=== PATIENT | female | born 1985 | race American Indian/Alaskan Native ===

== ENCOUNTER 2016-12-05 08:00 | Emergency (ER) | payer MEDICAID ==
[2016-12-05 09:48] LABS: Bacteria,Urine 1+ /HPF (Negative); Bilirubin,Urine NEG (Negative); Blood,Urine NEG (Negative); Ketones,Urine NEG (Negative); Leukocyte Esterase,Urine TR (Negative); Mucus,Urine FEW /HPF; Nitrite,Urine NEG (Negative)
[2016-12-05 10:02] LABS: Basophils % (Auto) 0.4 % (0.0-1.8); Eosinophils % (Auto) 0.1 % (0.0-4.3); Hematocrit 39.8 % (30.3-42.9); Hemoglobin 13.4 gm/dl (10.1-14.3); Mean Corpuscular HGB Conc 34 % (30-34); Mean Corpuscular Hemoglobin 31 pg (28-32); Mean Corpuscular Volume 93 fl (79-97); Platelet Count 308 K/mm3 (140-440); Red Cell Distribution Width 12.2 % (13.2-15.2); White Blood Count 6.2 K/mm3 (4.5-11.0)
--- NOTE | 2016-12-05 10:40 | Emergency Department Report ---
ED General Adult HPI - General Chief complaint: Abdominal Pain Stated complaint: HEADACHES/ABD/RT SIDE PAIN Time Seen by Provider: 12/05/16 10:23 Source: patient, RN notes reviewed, old records reviewed Mode of arrival: Ambulatory Limitations: No Limitations - History of Present Illness Initial comments: This is a 31-year-old female, might have evaluated in the past. Her primary care doctor is Dr. Edgar. She has been noted to have elevated blood pressure in the past, but she reports no chronic medical conditions. Reports a surgical history of cholecystectomy. Last menstrual period was "last week." The patient presents to the ER with multiple complaints. First complaint is headache. The headache is left-sided. It is throbbing. It has been present for the past 2 days. It waxes and wanes. It did not reach maximal intensity within an hour. It is not sudden or thunderclap in nature. It has no exacerbating or relieving factors. The headache is worse today. No fever, no neck pain, no neck stiffness. No loss of vision. No extremity weakness. No extremity numbness. The patient's next complaint is breast pain and fullness. The breast pain and fullness is bilateral. It has been present since December 03. Increases with palpation, decreases with rest. There is no trauma. There is no discharge. The patient's third complaint is abdominal pain. Abdominal pains in the bilateral lower quadrants. It is sharp. It increases with palpation, decreases with rest. She denies nausea, vomiting and diarrhea. She denies irritative and obstructive urinary symptoms. She denies vaginal discharge. The patient reports being sexually active with 1 male partner. She denies a history of dyspareunia. -: Gradual, days(s) Location: head, chest ( bilateral breast), abdomen Consistency: intermittent Improves with: rest Worsens with: movement Associated Symptoms: headaches. denies: confusion, chest pain, cough, diaphoresis, fever/chills, malaise, nausea/vomiting, rash, seizure, shortness of breath, syncope, weakness - Related Data Previous Rx's Medication Instructions Recorded Last Taken Type Doxycycline [Vibramycin] 100 mg PO Q12HR #28 capsule 12/05/16 Unknown Rx Ketorolac [Toradol] 10 mg PO Q6H PRN #20 tablet 12/05/16 Unknown Rx Ondansetron [Zofran Odt] 4 mg PO QID PRN #20 tab.rapdis 12/05/16 Unknown Rx Allergies Allergy/AdvReac Type Severity Reaction Status Date / Time No Known Allergies Allergy Verified 12/05/16 08:11 ED Review of Systems ROS: Stated complaint: HEADACHES/ABD/RT SIDE PAIN Other details as noted in HPI Constitutional: denies: fever, malaise Eyes: denies: eye discharge ENT: denies: epistaxis Respiratory: denies: cough, shortness of breath, wheezing Cardiovascular: denies: chest pain, palpitations Gastrointestinal: abdominal pain Genitourinary: denies: urgency, dysuria, discharge Musculoskeletal: denies: back pain, arthralgia Skin: denies: rash, lesions Neurological: headache Psychiatric: denies: anxiety, depression ED Past Medical Hx - Past Medical History Additional medical history: Gestational hypertention - Surgical History Hx Cholecystectomy: Yes - Social History Smoking Status: Never Smoker Substance Use Type: None - Medications Home Medications: Home Medications Medication Instructions Recorded Confirmed Last Taken Type Doxycycline [Vibramycin] 100 mg PO Q12HR #28 capsule 12/05/16 Unknown Rx Ketorolac [Toradol] 10 mg PO Q6H PRN #20 tablet 12/05/16 Unknown Rx Ondansetron [Zofran Odt] 4 mg PO QID PRN #20 tab.rapdis 12/05/16 Unknown Rx ED Physical Exam - General Limitations: No Limitations General appearance: alert, in no apparent distress - Head Head exam: Present: atraumatic, normocephalic - Eye Eye exam: Present: normal appearance, PERRL, EOMI. Absent: nystagmus - ENT ENT exam: Present: normal exam, normal orophraynx, mucous membranes moist, normal external ear exam - Neck Neck exam: Present: normal inspection, full ROM. Absent: tenderness, meningismus - Respiratory Respiratory exam: Present: normal lung sounds bilaterally, chest wall tenderness (therethere is bilateral breast tenderness. There is no redness, pus , streaking, erythema or crepitus.), other (escorted by MICHAEL Vanessa). Absent: respiratory distress, wheezes, rales, rhonchi, stridor - Cardiovascular Cardiovascular Exam: Present: regular rate, normal rhythm, normal heart sounds. Absent: bradycardia, tachycardia, irregular rhythm, systolic murmur, diastolic murmur, rubs, gallop - GI/Abdominal GI/Abdominal exam: Present: soft, tenderness, normal bowel sounds, other ( bilateral lower quadrant tenderness. No rebound, guarding or peritoneal signs.) . Absent: distended, guarding, rebound, rigid, pulsatile mass - External exam: Present: normal external exam Speculum exam: Present: vaginal discharge Bi-manual exam: Present: cervical motion tendernes, adnexal tenderness, uterine tenderness, other (escorted by RN Clint vanessa) - Extremities Exam Extremities exam: Present: normal inspection, full ROM, normal capillary refill. Absent: tenderness, pedal edema, joint swelling, calf tenderness - Back Exam Back exam: Present: normal inspection, full ROM. Absent: tenderness, CVA tenderness (R), CVA tenderness (L), muscle spasm, paraspinal tenderness, vertebral tenderness - Neurological Exam Neurological exam: Present: alert, oriented X3, normal gait (no pass pointing. Normal [id number]. Negative Romberg. Normal gait. Visual acuity intact to finger counting, color perception, reading at a close distance.), other ( Extraocular movements intact. Tongue midline. No facial droop. Facial sensation intact to light touch in the V1, V2, V3 distribution bilaterally. 5 and 5 strength in 4 extremities.. Sensation is intact to light touch in 4 extremities.). Absent: motor sensory deficit - Psychiatric Psychiatric exam: Present: normal affect, normal mood - Skin Skin exam: Present: warm, dry, intact, normal color. Absent: rash ED Course Vital Signs 12/05/16 12/05/16 12/05/16 08:06 10:56 10:57 Temperature 99.1 F Pulse Rate 94 H 87 Respiratory 18 16 16 Rate Blood Pressure 161/117 Blood Pressure 151/93 [Right] O2 Sat by Pulse 99 97 97 Oximetry 12/05/16 12:15 Temperature Pulse Rate Respiratory 16 Rate Blood Pressure Blood Pressure [Right] O2 Sat by Pulse Oximetry - Reevaluation(s) Reevaluation #1: 12/05/16 11:19 Differential diagnosis: , urinary tract infection, pyelonephritis, pelvic inflammatory disease, appendicitis, nonspecific mastodynia, migraine headache, tension headache, cluster headache Assessment and plan: 31-year-old female with multiple complaints. She is not . Has a GCS of 15, with an NIH score is 0. Walks with a steady gait. Rectal temperature 99.0 degrees. Headache clinically sounds benign. She'll be treated symptomatically. Has nonspecific breast tenderness, with no obvious indication of infection. For her headache and breast discomfort, she can follow up with the primary care doctor. I do not appear to be imminently dangerous or life-threatening. She does have lower abdominal tenderness. She has gynecologic tenderness. Urinalysis demonstrates wbc's with leukocytes. Highly suspect pelvic inflammatory disease. She will be treated symptomatically. Antibiotics administered. CT scan of the abdomen and pelvis is pending to exclude surgical disease. Reevaluation #2: 12/05/16 12:48 CT scan of the abdomen and pelvis demonstrates no acute disease. vital signs improved. Patient feels improved after pain medication. She'll be discharged pain medication, antibiotics, instructions to follow up with obstetrics, gynecology, primary care. Return precautions are reviewed. - EJ/Peripheral Line Arm R Time Out Performed: Yes Indications: other (placed to expedite work up) Skin Cleansed in Sterile Fashion: Yes Size: 20 Dressing Placed: Tegaderm Patient Tolerated Procedure: well ED Medical Decision Making - Lab Data Result diagrams: 12/05/16 09:39 12/05/16 09:39 - Radiology Data Radiology results: report reviewed, image reviewed CT scan of the abdomen and pelvis with IV contrast. Normal upper abdomen status post cholecystectomy. Normal appendix. Uterus demonstrates numerous fibroids. No adnexal masses or free fluids are noted. No aggressive bony lesions are demonstrated. Critical care attestation.: If time is entered above; I have spent that time in minutes in the direct care of this critically ill patient, excluding procedure time. ED Disposition Clinical Impression: Abdominal pain Disposition: DISCHARGED TO HOME OR SELFCARE Is pt being admited?: No Does the pt Need Aspirin: No Condition: Stable Instructions: Pelvic Inflammatory Disease (ED), Uterine Fibroids (ED) Additional Instructions: As we discussed, your laboratory studies appeared to be within normal limits. You are not . The CAT scan your abdomen/pelvis did not demonstrate any acute disease or pathology that would require emergency surgery, or antibiotic therapy. fibroids were noted incidentally Given all this, you'll be treated empirically for disease called pelvic inflammatory disease. We typically treat young females with unexplained lower abdominal pain to protect your ability to have children safely in the future. Cultures were sent today, and results will be available next 3-5 days. Please have your primary care doctor call the medical records department to obtain your culture results. Take the antibiotic therapy as directed. Take the nausea medication and pain medication as directed. I recommend outpatient testing for sexually transmitted diseases, including hepatitis, syphilis and HIV. I also recommend that you abstain from sexual activity until you have completed her antibiotic therapy, a physician states that it is safe for you to resume sexual activity, and any partners that you have been sexually active with have been tested/treated/evaluated for sexual transmitted diseases. Please follow-up with physician within 3-5 days. I recommend that you return to the ER right away with worsening pain, migration of pain, intractable nausea/vomiting, inability tolerate liquid feeds. In addition, your blood pressure was elevated. This should be followed up by a primary care doctor within the next week to 2 weeks. Long-term complications of hypertension/elevated blood pressure include stroke, heart attack, disability , , paralysis, permanent loss of quality of life. Referrals: DR DEMARCUS [Other] - 3-5 Days ELBA CALDERÓN MD [Staff Physician] - 3-5 Days [facility] [Provider Group] - 3-5 Days [facility] [Provider Group] - 3-5 Days
[2016-12-05 10:47] LABS: Alanine Aminotransferase 19 units/L (7-56); Albumin/Globulin Ratio 1.1 %; Alkaline Phosphatase 45 units/L (35-129); Anion Gap 16 mmol/L; BUN/Creatinine Ratio 15.71; Bilirubin,Total 0.4 mg/dL (0.1-1.2); Blood Urea Nitrogen 11 mg/dL (7-17); Calcium 9.2 mg/dL (8.4-10.2); Carbon Dioxide 24 mmol/L (22-30); Chloride 102.6 mmol/L (98-107); Glucose 108 mg/dL (65-100); Lipase 33 units/L (13-60); Potassium 3.8 mmol/L (3.6-5.0); Sodium 139 mmol/L (137-145); Total Protein 7.6 g/dL (6.3-8.2)
[2016-12-05] MEDS ORDERED: VIBRAMYCIN PO ONE (11:05)
[2016-12-05] MEDS ORDERED: NACL 0.9% 1000 ML 1,000 ML IV ONE (11:05)
[2016-12-05] MEDS ORDERED: TORADOL IV ONE (11:05)
[2016-12-05] MEDS ORDERED: MORPHINE IV ONE (11:05)
[2016-12-05] MEDS ORDERED: NACL ONE (11:10)
[2016-12-05] MEDS ORDERED: ROCEPHIN 250 MG in NACL 0.9% 50 ML IV ONE (12:00)
--- NOTE | 2016-12-05 12:41 | Cat Scan Report ---
CT ABDOMEN AND PELVIS WITH CONTRAST: 12/05/16 08:00:00 CLINICAL: Lower abdominal pain. COMPARISON: None. TECHNIQUE: Volumetric acquisition and 1.25 millimeter scan reconstructions after the uneventful intravenous injection of 100 cc Omnipaque 300. Consent was obtained prior to the administration of contrast. Oral contrast was not given. FINDINGS: Abdomen: Clear lung bases.Normal liver and bile ducts status post cholecystectomy. Normal stomach, duodenum, pancreas and spleen. Normal adrenal glands and kidneys. The renal collecting systems and ureters are nondilated. No renal calculus, mass or cyst. Normal aorta and inferior vena cava. Normal small bowel.Normal ascending, transverse and descending colon. The appendix is normal. No mass, lymphadenopathy or ascites.No pneumoperitoneum. Pelvis: The uterus measures 10.2 x 6.0 x 7.5 cm. At least 2 enhancing uterine fibroids are identified. The largest is intramural to the left of midline in the posterior body and measures 4.1 cm. The uterine cavity is nondistended.The right ovary is normal and contains small follicles. It measures 4.0 x 3.2 cm. The left ovary is normal and contain small follicles. It measures 4.1 x 3.6 cm. No adnexal mass or free fluid. Normal rectum and sigmoid colon. Bone windows demonstrate no bone lesion. IMPRESSION:1. Normal upper abdomen status post cholecystectomy. 2. Uterine leiomyomata with minimal uterine enlargement. 3. Normal ovaries.
[2016-12-05 13:26] VITALS: BP 142/84
== END 2016-12-05 13:20 | disposition home or self-care (01) ==
LOC: ED 08:00
DX: R10.31 Right lower quadrant pain (principal); R10.32 Left lower quadrant pain
CPT/HCPCS: 36415; 36569; 74177; 80053; 81001; 83690; 84703; 85025; 87210; 87591; 96365; 96375; 99285; J0696; J1885; J7030; Q9967; J2270

== ENCOUNTER 2017-01-03 12:29 | Emergency (ER) | payer MEDICAID ==
[2017-01-03 13:27] LABS: Bilirubin,Urine NEG (Negative); Blood,Urine NEG (Negative); Ketones,Urine NEG (Negative); Leukocyte Esterase,Urine SM (Negative); Mucus,Urine 3+ /HPF; Nitrite,Urine NEG (Negative)
[2017-01-03 13:30] LABS: Anion Gap 20 mmol/L; BUN/Creatinine Ratio 11.42; Blood Urea Nitrogen 8 mg/dL (7-17); Calcium 9.2 mg/dL (8.4-10.2); Carbon Dioxide 20 mmol/L (22-30); Chloride 102.5 mmol/L (98-107); Glucose 111 mg/dL (65-100); Potassium 3.6 mmol/L (3.6-5.0); Sodium 139 mmol/L (137-145)
[2017-01-03 13:32] LABS: Basophils % (Auto) 0.4 % (0.0-1.8); Eosinophils % (Auto) 0.5 % (0.0-4.3); Hematocrit 40.6 % (30.3-42.9); Hemoglobin 13.5 gm/dl (10.1-14.3); Mean Corpuscular HGB Conc 33 % (30-34); Mean Corpuscular Hemoglobin 31 pg (28-32); Mean Corpuscular Volume 94 fl (79-97); Platelet Count 287 K/mm3 (140-440); Red Blood Count 4.35 M/mm3 (3.65-5.03); Red Cell Distribution Width 12.2 % (13.2-15.2); White Blood Count 5.4 K/mm3 (4.5-11.0)
--- NOTE | 2017-01-03 22:03 | Emergency Department Report ---
HPI - General Chief Complaint: Abdominal Pain Time Seen by Provider: 01/03/17 20:28 - HPI HPI: The patient is a 31-year-old female , EGA 5 weeks, with a history of chronic hypertension, who presents for evaluation of abdominal pain. The patient reports on and off bilateral lower abdominal pain since 9 AM this morning, nearly 12 hours prior to my evaluation. She states that her pain has been 10/10 in severity, cramping and sharp in quality, radiating to the lower back. She does report on and off mild intermittent nausea in the mornings for the past week. The patient denies fever, diarrhea, blood in the stool, dark tarry stool, dysuria, hematuria, flank pain, genital discharge, vaginal bleeding , trauma to the abdomen, inability to pass flatus. ED Past Medical Hx - Past Medical History Additional medical history: Gestational hypertention. FIBROIDS - Surgical History Hx Cholecystectomy: Yes - Social History Smoking Status: Light Tobacco Smoker Substance Use Type: None - Medications Home Medications: Home Medications Medication Instructions Recorded Confirmed Last Taken Type Acetaminophen [Tylenol] 1,000 mg PO Q6HR #20 tablet 01/03/17 Unknown Rx Ondansetron [Zofran TAB] 4 mg PO Q8HR PRN #20 tablet 01/03/17 Unknown Rx Pnv95/Ferrous Fumarate/FA 1 each PO QDAY #31 tablet 01/03/17 Unknown Rx [ Vitamin Tablet] hydrALAZINE [Apresoline TAB] 25 mg PO Q8HR #30 tab 01/03/17 Unknown Rx ED Review of Systems ROS: Stated complaint: ABD PAIN/POSITIVE PREG TEST Other details as noted in HPI Constitutional: denies: fever ENT: denies: throat or neck pain Respiratory: denies: cough, shortness of breath Cardiovascular: denies: chest pain Endocrine: denies unexplained weight loss or gain Gastrointestinal: reports abdominal pain, nausea Genitourinary: denies: dysuria Musculoskeletal: denies: leg swelling Skin: denies: rash Neurological: denies: headache Hematological/Lymphatic: denies: easy bleeding or easy bruising Psych: denies sadness or hopelessness Physical Exam - Physical Exam Vital Signs: Vital Signs 01/03/17 01/03/17 01/03/17 12:46 20:20 20:30 Temperature 99.0 F Pulse Rate 94 H 86 71 Respiratory 18 29 H 23 Rate Blood Pressure 162/105 158/106 155/101 O2 Sat by Pulse 100 100 100 Oximetry 01/03/17 20:38 Temperature Pulse Rate Respiratory 18 Rate Blood Pressure O2 Sat by Pulse 100 Oximetry Physical Exam: General: well-nourished, well-developed, no acute distress Head: Normocephalic, atraumatic Eyes: normal sclera ENT: Mucous membranes are pink and moist Neck: trachea midline, neck supple, No neck stiffness, no cervical adenopathy Respiratory: Breath sounds equal bilaterally, no wheezing, rales, or rhonchi Cardio: S1 and S2 present, no murmurs, rubs, gallops, capillary refill is brisk Abdomen: Normoactive bowel sounds, soft abdomen, bilateral lower abdominal tenderness to palpation present, no pain in McBurney's point, no rigidity, no guarding or rebound tenderness Musc: No pitting edema Skin: No rash Neuro: no facial drooping, normal speech Psych: Normal affect ED Course Vital Signs 01/03/17 01/03/17 01/03/17 12:46 20:20 20:30 Temperature 99.0 F Pulse Rate 94 H 86 71 Respiratory 18 29 H 23 Rate Blood Pressure 162/105 158/106 155/101 O2 Sat by Pulse 100 100 100 Oximetry 01/03/17 20:38 Temperature Pulse Rate Respiratory 18 Rate Blood Pressure O2 Sat by Pulse 100 Oximetry ED Medical Decision Making - Lab Data Result diagrams: 01/03/17 12:58 01/03/17 12:58 - Medical Decision Making The patient was seen and examined by myself. The patient is placed on a school lunch monitor and continuous pulse ox. On initial evaluation, the patient was found to be in no distress. Evaluation orders are placed. The patient is given a tablet of Tylenol for her pain. The patient is given a tablet of hydralazine for her elevated blood pressure. Lab results revealed elevated hCG of 5900, and otherwise labs were non-concerning including WBC, hemoglobin, hematocrit, electrolytes, renal function, and urinalysis. Ultrasound of the pelvis exhibits live intrauterine , and was negative for signs of ectopic . The patient was reevaluated and reported that their symptoms were markedly improved. The patient is stable for discharge with outpatient follow-up. The patient is given follow-up and return instructions. The patient expressed understanding and agreed with the plan. The patient is discharged in stable condition. Critical care attestation.: If time is entered above; I have spent that time in minutes in the direct care of this critically ill patient, excluding procedure time. ED Disposition Clinical Impression: Acute bilateral lower abdominal pain, Abdominal pain during in first trimester, Asymptomatic hypertensive urgency Disposition: DISCHARGED TO HOME OR SELFCARE Is pt being admited?: No Does the pt Need Aspirin: No Condition: Stable Instructions: Chronic Hypertension (ED), Abdominal Pain in (ED), Morning Sickness (ED) Referrals: [facility] [Provider Group] - 3-5 Days Time of Disposition: 22:03
[2017-01-03] MEDS ORDERED: APRESOLINE PO ONE (22:05)
--- NOTE | 2017-01-03 22:08 | Ultrasound Report ---
FINAL REPORT PROCEDURE: US OB \T\lt; = 14 WEEKS FETUS TECHNIQUE: Real-time transabdominal sonography of the uterus, placenta, amniotic fluid, adnexa, and fetus was performed with image documentation. Measurements were obtained to determine age/size. M-mode Doppler was used to document heartbeat. CPT 65262 HISTORY: Abdominal and pelvic pain, COMPARISON: No prior studies are available for comparison. FINDINGS: The report for this exam was generated using images from both the transabdominal and transvaginal OB ultrasound both of which were performed today. The uterus measures 11.1 x 7.1 x 7.4 centimeter and has heterogeneous echogenic myometrium. Multiple uterine fibroids appear to be present measuring up to 4.9 centimeter, additional fibroid seen measuring 3.8 centimeter with several smaller fibroids also present. Gestational sac is visualized containing a yolk sac. pole is not visualized. No evidence of subchorionic hemorrhage. Mean gestational sac size is 8.8 millimeters corresponding to an age of 5 weeks 5 days. Right ovary is visualized showing no abnormalities measuring 3.0 x 1.8 x 2.9 centimeters. Left ovary was not visualized. No free fluid is seen in the cul-de-sac. IMPRESSION: Gestational sac is visualize containing a yolk sac. pole is not visualized. It may be too early to visualize this structure. By gestational sac measurement the estimated age is 5 weeks 5 days placing the EDC at 08/31/2017 0.5 weeks. Follow-up exam suggested to confirm living intrauterine . Multiple uterine fibroids are present as described. There is no evidence of subchorionic hemorrhage. Right ovary appear normal. Left ovary is not visualized
--- NOTE | 2017-01-03 22:09 | Ultrasound Report ---
FINAL REPORT PROCEDURE: US OB TRANSVAGINAL TECHNIQUE: Real-time transvaginal sonography of the uterus, placenta, amniotic fluid, adnexa, and fetus was performed with image documentation. Measurements were obtained to determine age/size. M-mode Doppler was used to document heartbeat. CPT 03908 HISTORY: abd/pelvic pain, COMPARISON: No prior studies are available for comparison. FINDINGS: The report for this exam was generated using images from both the transabdominal and transvaginal OB ultrasound both of which were performed today. The uterus measures 11.1 x 7.1 x 7.4 centimeter and has heterogeneous echogenic myometrium. Multiple uterine fibroids appear to be present measuring up to 4.9 centimeter, additional fibroid seen measuring 3.8 centimeter with several smaller fibroids also present. Gestational sac is visualized containing a yolk sac. pole is not visualized. No evidence of subchorionic hemorrhage. Mean gestational sac size is 8.8 millimeters corresponding to an age of 5 weeks 5 days. Right ovary is visualized showing no abnormalities measuring 3.0 x 1.8 x 2.9 centimeters. Left ovary was not visualized. No free fluid is seen in the cul-de-sac. IMPRESSION: Gestational sac is visualize containing a yolk sac. pole is not visualized. It may be too early to visualize this structure. By gestational sac measurement the estimated age is 5 weeks 5 days placing the EDC at 08/31/2017 0.5 weeks. Follow-up exam suggested to confirm living intrauterine . Multiple uterine fibroids are present as described. There is no evidence of subchorionic hemorrhage. Right ovary appear normal. Left ovary is not visualized
[2017-01-03 23:09] VITALS: BP 154/108
== END 2017-01-03 23:11 | disposition home or self-care (01) ==
LOC: ED 12:29
DX: O26.891 Other specified pregnancy related conditions, first trimester (principal); O99.331 Smoking (tobacco) complicating pregnancy, first trimester; R10.30 Lower abdominal pain, unspecified; O16.1 Unspecified maternal hypertension, first trimester; Z3A.01 Less than 8 weeks gestation of pregnancy
CPT/HCPCS: 36415; 76801; 76817; 80048; 81001; 84702; 84703; 85025

== ENCOUNTER 2017-02-13 08:09 | Emergency (ER) | payer MEDICAID ==
[2017-02-13 09:12] LABS: Basophils % (Auto) 0.7 % (0.0-1.8); Eosinophils % (Auto) 0.6 % (0.0-4.3); Hematocrit 36.9 % (30.3-42.9); Hemoglobin 12.5 gm/dl (10.1-14.3); Mean Corpuscular HGB Conc 34 % (30-34); Mean Corpuscular Hemoglobin 31 pg (28-32); Mean Corpuscular Volume 91 fl (79-97); Platelet Count 290 K/mm3 (140-440); Red Blood Count 4.07 M/mm3 (3.65-5.03); Red Cell Distribution Width 12.3 % (13.2-15.2); White Blood Count 4.9 K/mm3 (4.5-11.0)
[2017-02-13 09:36] LABS: Bilirubin,Urine NEG (Negative); Blood,Urine LG (Negative); Ketones,Urine NEG (Negative); Leukocyte Esterase,Urine MOD (Negative); Mucus,Urine FEW /HPF; Nitrite,Urine NEG (Negative); Urobilinogen,Urine < 2.0 mg/dL (<2.0)
--- NOTE | 2017-02-13 10:55 | Ultrasound Report ---
Pelvic and transvaginal sonography: History: Vaginal bleeding. Pelvic pain. Findings: Uterus measures 11.4 x 8 x 9.9 cm. Multiple fibroids identified within the uterus largest measuring 4.8 x 4.9 x 3.8 cm. The right and left ovaries not visualized. There is single gestational sac noted within the uterus measuring 4.8 cm in maximum diameter corresponding to 10 weeks and 4 days of gestation. Faint echoes identified within the sac may or may not represent pole. The suspected CRL is 4.2 mm and corresponds to 6 weeks of gestation. No cardiac activity is noted. Impression: Irregular gestational sac corresponding to 10 weeks and 4 days of gestation. Questionable pole within the gestational sac corresponding to 6 weeks of gestation. No cardiac activity.
[2017-02-13 14:05] VITALS: BP 129/92
--- NOTE | 2017-02-13 15:09 | Emergency Department Report ---
ED HPI - General Chief complaint: Vaginal Bleeding Stated complaint: POSS MISCARRIAGE/BLEEDING/STOMACH CRAMPS Time Seen by Provider: 02/13/17 14:41 Source: patient Mode of arrival: Ambulatory Limitations: No Limitations - History of Present Illness Initial comments: 31-year-old female presents to the emergency department complaining of lower abdominal cramping and vaginal bleeding beginning this morning at approximately 6 AM. Patient states she is approximate 11 weeks , A1. Patient describes cramping pain radiating into her back and down her leg. She denies nausea, vomiting, or lightheadedness. There are no other complaints. MD Complaint: abdominal pain, vaginal bleeding -: Sudden, This morning Time: 06:00 Location: abdomen Radiation: back Severity: moderate Quality: cramping Consistency: intermittent Improves with: none Worsens with: none Associated symptoms: vaginal bleeding Vaginal bleeding: light, heavy (alternating) :: Yes Number of weeks : 11 OB History - Current : no complications OB History - Previous Pregnancies: miscarriage Pre-sami care: followed by OB - Related Data : 3 Para: 1 Ab: 1 Previous Rx's Medication Instructions Recorded Last Taken Type Pnv95/Ferrous Fumarate/FA 1 each PO QDAY #31 tablet 01/03/17 02/12/17 09:00 Rx [ Vitamin Tablet] Ibuprofen [Motrin 800 MG tab] 800 mg PO Q8HR PRN #30 tablet 02/13/17 Unknown Rx Allergies Allergy/AdvReac Type Severity Reaction Status Date / Time No Known Allergies Allergy Verified 02/13/17 08:28 ED Review of Systems ROS: Stated complaint: POSS MISCARRIAGE/BLEEDING/STOMACH CRAMPS Other details as noted in HPI Comment: All other systems reviewed and negative Gastrointestinal: abdominal pain Genitourinary: as per HPI, abnormal menses ED Past Medical Hx - Past Medical History Previous Medical History?: Yes Additional medical history: Gestational hypertention. FIBROIDS - Surgical History Past Surgical History?: Yes Hx Cholecystectomy: Yes - Family History Family history: no significant - Social History Smoking Status: Never Smoker Substance Use Type: None - Medications Home Medications: Home Medications Medication Instructions Recorded Confirmed Last Taken Type Pnv95/Ferrous Fumarate/FA 1 each PO QDAY #31 tablet 01/03/17 02/13/17 02/12/17 09:00 Rx [ Vitamin Tablet] Ibuprofen [Motrin 800 MG tab] 800 mg PO Q8HR PRN #30 tablet 02/13/17 Unknown Rx ED Physical Exam - General Limitations: No Limitations General appearance: alert, in no apparent distress - Head Head exam: Present: atraumatic, normocephalic - Eye Eye exam: Present: normal appearance, PERRL, EOMI - ENT ENT exam: Present: normal exam, normal orophraynx, mucous membranes moist - Neck Neck exam: Present: normal inspection, full ROM. Absent: tenderness - Respiratory Respiratory exam: Present: normal lung sounds bilaterally. Absent: respiratory distress - Cardiovascular Cardiovascular Exam: Present: regular rate, normal rhythm, normal heart sounds - GI/Abdominal GI/Abdominal exam: Present: soft, normal bowel sounds. Absent: distended, tenderness - Extremities Exam Extremities exam: Present: normal inspection, full ROM. Absent: tenderness - Back Exam Back exam: Present: normal inspection, full ROM. Absent: tenderness - Neurological Exam Neurological exam: Present: alert, oriented X3. Absent: motor sensory deficit - Skin Skin exam: Present: warm, dry, intact ED Course Vital Signs 02/13/17 02/13/17 02/13/17 08:25 13:26 13:30 Temperature 98.6 F Pulse Rate 102 H Respiratory 19 Rate Blood Pressure 156/93 118/99 Blood Pressure [Left] O2 Sat by Pulse 99 100 100 Oximetry 02/13/17 02/13/17 02/13/17 13:34 13:35 13:46 Temperature 98.6 F Pulse Rate 72 82 Respiratory 14 14 16 Rate Blood Pressure Blood Pressure 131/89 129/92 [Left] O2 Sat by Pulse 100 100 100 Oximetry ED Medical Decision Making - Lab Data Result diagrams: 02/13/17 08:53 - Radiology Data Radiology results: report reviewed, image reviewed ultrasound reveals a gestational sac with approximate date of 10 weeks 4 days. pole measures approximately 6 weeks by dates. There is no cardiac activity. - Medical Decision Making Lab and imaging results reviewed and discussed with the patient. Patient will be discharged home to follow up with her [employer]. - Differential Diagnosis spontaneous miscarriage, ectopic , vaginal bleeding in Critical care attestation.: If time is entered above; I have spent that time in minutes in the direct care of this critically ill patient, excluding procedure time. ED Disposition Clinical Impression: Spontaneous miscarriage Disposition: DISCHARGED TO HOME OR SELFCARE Is pt being admited?: No Condition: Stable Instructions: Spontaneous Miscarriage (ED) Prescriptions: Ibuprofen [Motrin 800 MG tab] 800 mg PO Q8HR PRN #30 tablet PRN Reason: Pain Referrals: ZEESHAN DAVIS MD [Staff Physician] - 3-5 Days Time of Disposition: 15:12
== END 2017-02-13 15:51 | disposition home or self-care (01) ==
LOC: ED 08:09
DX: O03.9 Complete or unspecified spontaneous abortion without complication (principal); Z3A.11 11 weeks gestation of pregnancy
CPT/HCPCS: 36415; 76801; 76817; 81001; 84702; 85025; 86850; 86900; 86901; 99284

== ENCOUNTER 2017-05-16 22:04 | Emergency (ER) | payer MEDICAID | END 2017-05-16 23:40 | disposition left against medical advice (07) | LOC: ED 22:04 | DX: K08.89 Other specified disorders of teeth and supporting structures (principal); Z53.21 Procedure and treatment not carried out due to patient leaving prior to being seen by health care provider ==

== ENCOUNTER 2017-05-23 22:59 | Emergency (ER) | payer MEDICAID ==
[2017-05-24 00:15] VITALS: BP 139/101
== END 2017-05-24 00:50 | disposition left against medical advice (07) ==
LOC: ED 22:59
DX: Z53.21 Procedure and treatment not carried out due to patient leaving prior to being seen by health care provider (principal)

== ENCOUNTER 2017-10-23 01:55 | Emergency (ER) | payer MEDICAID ==
[2017-10-23 04:26] LABS: Basophils % (Auto) 0.7 % (0.0-1.8); Eosinophils % (Auto) 0.6 % (0.0-4.3); Hematocrit 36.1 % (30.3-42.9); Hemoglobin 11.9 gm/dl (10.1-14.3); Mean Corpuscular HGB Conc 33 % (30-34); Mean Corpuscular Hemoglobin 30 pg (28-32); Mean Corpuscular Volume 91 fl (79-97); Platelet Count 304 K/mm3 (140-440); Red Blood Count 3.97 M/mm3 (3.65-5.03); Red Cell Distribution Width 13.1 % (13.2-15.2); White Blood Count 7.5 K/mm3 (4.5-11.0)
[2017-10-23 04:44] LABS: Alanine Aminotransferase 11 units/L (7-56); Albumin/Globulin Ratio 1.5 %; Alkaline Phosphatase 36 units/L (35-129); Anion Gap 17 mmol/L; BUN/Creatinine Ratio 20; Bilirubin,Total < 0.20 mg/dL (0.1-1.2); Blood Urea Nitrogen 12 mg/dL (7-17); Calcium 8.8 mg/dL (8.4-10.2); Carbon Dioxide 21 mmol/L (22-30); Chloride 100.4 mmol/L (98-107); Glucose 97 mg/dL (65-100); Lipase 36 units/L (13-60); Potassium 3.8 mmol/L (3.6-5.0); Sodium 135 mmol/L (137-145); Total Protein 6.7 g/dL (6.3-8.2)
--- NOTE | 2017-10-23 06:12 | Emergency Department Report ---
HPI - General Chief Complaint: Abdominal Pain Time Seen by Provider: 10/23/17 05:55 - HPI HPI: Patient is a 31-year-old female presents to ED complaining of dizziness and lower pelvic cramping for the past 2 days. Patient states she has been having expresses some lower pelvic cramping 2 days. Patient states dizziness started about yesterday. Patient states she has had some loss of appetite and has not really feel like eating recently. She is able to eat small meals Patient denies any fevers/chills/diarrhea/nausea/vomiting/abdominal pain/chest pains or shortness of breath/recent trauma. ED Past Medical Hx - Past Medical History Previous Medical History?: No Additional medical history: Gestational hypertention. FIBROIDS - Surgical History Hx Cholecystectomy: Yes - Social History Smoking Status: Never Smoker Substance Use Type: None - Medications Home Medications: Home Medications Medication Instructions Recorded Confirmed Last Taken Type Ibuprofen [Motrin 800 MG tab] 800 mg PO Q8HR PRN #30 tablet 02/13/17 Unknown Rx Acetaminophen [Tylenol Extra 500 mg PO Q6H #30 tablet 10/23/17 Unknown Rx Strength] Pnv No.95/Ferrous Fum/Folic AC 1 each PO QDAY #40 tablet 10/23/17 Unknown Rx [ Vitamin Tablet] ED Review of Systems ROS: Stated complaint: ABD PAIN Other details as noted in HPI Constitutional: denies: chills, fever Eyes: denies: eye pain, eye discharge, vision change ENT: denies: ear pain, throat pain Respiratory: denies: cough, shortness of breath, wheezing Cardiovascular: denies: chest pain, palpitations Endocrine: no symptoms reported Gastrointestinal: denies: abdominal pain, nausea, vomiting, diarrhea, constipation, hematemesis Genitourinary: denies: urgency, dysuria, discharge Musculoskeletal: denies: back pain, joint swelling, arthralgia Skin: denies: rash, lesions Neurological: denies: headache, weakness, paresthesias Psychiatric: denies: anxiety, depression Hematological/Lymphatic: denies: easy bleeding, easy bruising Physical Exam - Physical Exam Vital Signs: Vital Signs 10/23/17 03:43 Temperature 98.3 F Pulse Rate 83 Respiratory 18 Rate Blood Pressure 149/108 O2 Sat by Pulse 100 Oximetry Physical Exam: GENERAL: Alert and oriented x3, no apparent distress, Normal Gait, atraumatic. HEAD: Head is normocephalic and a-traumatic. EYES: Extra ocular muscles are intact. Pupils are equal, round, and reactive to light and accommodation. NECK: Supple. Non edematous, No carotid bruits. No lymphadenopathy or thyromegaly. No C-spine tenderness LUNGS: Symetrical with respiration, No wheezing, no rales or crackles, CTAB. HEART: S1, S2 present, regular rate and rhythm without murmur, no rubs, no gallops. Non tender to palpation ABDOMEN: No organomegaly was noted,Positive bowel sounds, soft, and non- distended. . Nontender to palpation on all Quadrants, NO CVA tenderness. BACK: Full range of motion, no spinal tenderness, nontender to palpation. EXTREMITIES/MUSCULOSKELETAL: No cyanosis, clubbing, rash, lesions or edema. Full ROM bilaterally. NEUROLOGIC: The patient is cooperative with no focal neurologic deficits. SKIN: Warm and dry, No lesions, No ulceration or induration present. ED Course Vital Signs 10/23/17 03:43 Temperature 98.3 F Pulse Rate 83 Respiratory 18 Rate Blood Pressure 149/108 O2 Sat by Pulse 100 Oximetry ED Medical Decision Making - Lab Data Result diagrams: 10/23/17 04:00 10/23/17 04:00 - Radiology Data Radiology results: report reviewed, image reviewed FINAL REPORT EXAM: US OB TRANSVAGINAL HISTORY: COMPARISONS: No recent comparison FINDINGS: Transvaginal grayscale and color Doppler ultrasound evaluation of the pelvis No specific findings of intrauterine . A round 1 centimeter fluid-filled structure is present in the endometrium, suggestive of a gestational sac with mean diameter of 3 millimeters, which would the the correspond to a estimated gestational age of 5 weeks 0 days. Endometrium is slightly heterogeneous and measures up to 10 millimeters in thickness. Multiple transmural fibroids are present measuring up to 4.9 cm in greatest dimension. No significant endometrial distortion. No significant free fluid in pelvis. The ovaries are sonographically unremarkable and measure 3.6 x 1.9 x 2.4 cm on the right and 3.6 x 2.9 x 4.6 cm on the left. IMPRESSION: No specific findings of intrauterine . A possible endometrial gestational sac measures up to 1 cm with corresponding estimated gestational age of 5 weeks 0 days. In the setting of positive test, differential diagnosis includes early normal versus abnormal to include of unknown location/ectopic . Close clinical and sonographic follow-up are recommended. Transcribed By: MB Dictated By: NEMO LEWIS MD Electronically Authenticated By: NEMO LEWIS MD Signed Date/Time: 10/23/173 - Medical Decision Making 31-year-old female presents with positive . Course: I discussed the patient symptoms she is having is consistent with . tests positive, quantitative 824. Discussed the patient this is early back in 2 days or follow up with [facility] for serial quat levels Urinalysis negative, no signs of infection. Patient had no urinary Symptoms I discussed the patient that she will need to start care at [facility]. Gave referrals for several [facility] to patient. I discussed the patient she started taking vitamins, Tylenol as needed for cramping I discussed the patient to increase fluids 8-10 glasses of water per day. This would help with cramping. I discussed the patient if she started to experience any worsening symptoms or vaginal bleeding to return to ED immediately otherwise follow-up with OB - Differential Diagnosis Early normal , ectopic , Critical care attestation.: If time is entered above; I have spent that time in minutes in the direct care of this critically ill patient, excluding procedure time. ED Disposition Clinical Impression: History of uterine fibroid Qualifiers: Weeks of gestation: less than 8 weeks Qualified Code(s): Z3A.01 - Less than 8 weeks gestation of Disposition: DC-01 TO HOME OR SELFCARE Is pt being admited?: No Does the pt Need Aspirin: No Condition: Stable Instructions: (ED), Uterine Fibroids (ED), Abdominal Pain (ED) Additional Instructions: Make sure to follow up with the obgyn as discussed. Take all your medications as you've been prescribed. If you have any worsening symptoms or develop new symptoms please return to ED immediately. Increase water intake to 8-10 glasses a day. Take Tylenol as needed for for pain Prescriptions: Acetaminophen [Tylenol Extra Strength] 500 mg PO Q6H #30 tablet Pnv No.95/Ferrous Fum/Folic AC [ Vitamin Tablet] 1 each PO QDAY #40 tablet Referrals: PRIMARY CARE, [Primary Care Provider] - 3-5 Days THOM PARIS MD [Referring] - 3-5 Days DAVID PARIS MD [Referring] - 3-5 Days RONNIE APPLE MD [Referring] - 3-5 Days ANJEL KENDALL MD [Referring] - 3-5 Days JACI DAVIS MD [Staff Physician] - 3-5 Days Forms: Accompanied Note, Work/School Release Form(ED)
--- NOTE | 2017-10-23 07:13 | Ultrasound Report ---
FINAL REPORT EXAM: US OB < = 14 WEEKS FETUS HISTORY: COMPARISONS: No recent comparison FINDINGS: Transabdominal grayscale, color Doppler and M-mode ultrasound evaluation of the pelvis No specific findings of intrauterine . Endometrium is slightly heterogeneous measures up to 10 millimeters in thickness. Multiple transmural fibroids are present measuring up to 4.9 cm in greatest dimension. No significant endometrial distortion. No significant free fluid in pelvis. The ovaries are better visualized on transvaginal ultrasound. IMPRESSION: No specific findings of intrauterine . In the setting of positive test, differential diagnosis includes early normal versus abnormal to include of unknown location/ectopic . Close clinical and sonographic follow-up are recommended.
--- NOTE | 2017-10-23 07:15 | Ultrasound Report ---
FINAL REPORT EXAM: US OB TRANSVAGINAL HISTORY: COMPARISONS: No recent comparison FINDINGS: Transvaginal grayscale and color Doppler ultrasound evaluation of the pelvis No specific findings of intrauterine . A round 1 centimeter fluid-filled structure is present in the endometrium, suggestive of a gestational sac with mean diameter of 3 millimeters, which would the the correspond to a estimated gestational age of 5 weeks 0 days. Endometrium is slightly heterogeneous and measures up to 10 millimeters in thickness. Multiple transmural fibroids are present measuring up to 4.9 cm in greatest dimension. No significant endometrial distortion. No significant free fluid in pelvis. The ovaries are sonographically unremarkable and measure 3.6 x 1.9 x 2.4 cm on the right and 3.6 x 2.9 x 4.6 cm on the left. IMPRESSION: No specific findings of intrauterine . A possible endometrial gestational sac measures up to 1 cm with corresponding estimated gestational age of 5 weeks 0 days. In the setting of positive test, differential diagnosis includes early normal versus abnormal to include of unknown location/ectopic . Close clinical and sonographic follow-up are recommended.
[2017-10-23 07:26] VITALS: BP 120/55
[2017-10-23 08:06] LABS: Bilirubin,Urine NEG (Negative); Blood,Urine NEG (Negative); Ketones,Urine NEG (Negative); Leukocyte Esterase,Urine NEG (Negative); Nitrite,Urine NEG (Negative); Protein,Urine <15 mg/dL mg/dL (Negative); WBC,Urine < 1.0 /HPF (0.0-6.0)
[2017-10-23 08:12] LABS: RBC,Urine < 1.0 /HPF (0.0-6.0)
== END 2017-10-23 08:22 | disposition home or self-care (01) ==
LOC: ED 01:55
DX: O26.891 Other specified pregnancy related conditions, first trimester (principal); R10.2 Pelvic and perineal pain; R42 Dizziness and giddiness; Z3A.01 Less than 8 weeks gestation of pregnancy
CPT/HCPCS: 36415; 76801; 76817; 80053; 81001; 83690; 84702; 84703; 85025; 93005; 93010

== ENCOUNTER 2017-12-23 12:55 | Emergency (ER) | payer MEDICAID ==
[2017-12-23 13:12] VITALS: BP 130/77
[2017-12-23 14:18] LABS: Bilirubin,Urine NEG (Negative); Blood,Urine NEG (Negative); Color,Urine Yellow (Yellow); Mucus,Urine FEW /HPF; Nitrite,Urine NEG (Negative); Protein,Urine <15 mg/dL mg/dL (Negative)
[2017-12-23] MEDS ORDERED: ZOFRAN ODT PO ONE (14:22)
[2017-12-23] MEDS ORDERED: PERCOCET 5/325 PO ONE (14:22)
--- NOTE | 2017-12-23 14:24 | Emergency Department Report ---
ED Abdominal Pain HPI - General Chief Complaint: Abdominal Pain Stated Complaint: ABDOMINAL PAIN/3 MONTHS Time Seen by Provider: 12/23/17 14:22 Source: patient Mode of arrival: Ambulatory Limitations: No Limitations - History of Present Illness Initial Comments: Patient here left lower quadrant abdominal pain or radiation down to the left leg. Patient does have [facility] and she says she also goes to specialists and [facility] that monitors her fibroids every 2 weeks. She does have uterine fibroid and said that's why specialists and [place] monitor and her. Pain is 10 out of 10 with pressure and cramping that comes and go. Patient states she is 13 weeks . Denies any nausea vomiting or diarrhea or any painful urination. Denies any vaginal bleeding or discharge. Denies any chest pain or difficulty breathing. Patient already had STD testing with prior CENTRIFUGAL SCREEN TENDER visit. She is not concerned about STD MD Complaint: flank pain Onset/Timin -: days(s) Location: diffuse Radiation: none Migration to: no migration Severity scale (0 -10): 0 Quality: cramping, other (pressure) Consistency: intermittent Improves With: nothing Worsens With: nothing Context: other () Associated Symptoms: denies: nausea, vomiting, diarrhea, fever, chills, constipation, dysuria, hematemesis, melena, hematuria, anorexia, syncope Treatments Prior to Arrival: other (none) - Related Data Previous Rx's Medication Instructions Recorded Last Taken Type Ibuprofen [Motrin 800 MG tab] 800 mg PO Q8HR PRN #30 tablet 02/13/17 Unknown Rx Acetaminophen [Tylenol Extra 500 mg PO Q6H #30 tablet 10/23/17 Unknown Rx Strength] Pnv No.95/Ferrous Fum/Folic AC 1 each PO QDAY #40 tablet 10/23/17 Unknown Rx [ Vitamin Tablet] Allergies Allergy/AdvReac Type Severity Reaction Status Date / Time No Known Allergies Allergy Verified 02/13/17 08:28 ED Review of Systems ROS: Stated complaint: ABDOMINAL PAIN/3 MONTHS Other details as noted in HPI Comment: All other systems reviewed and negative ED Past Medical Hx - Past Medical History Previous Medical History?: Yes Additional medical history: Gestational hypertention. FIBROIDS - Surgical History Past Surgical History?: Yes Hx Cholecystectomy: Yes - Social History Smoking Status: Never Smoker Substance Use Type: None - Medications Home Medications: Home Medications Medication Instructions Recorded Confirmed Last Taken Type Ibuprofen [Motrin 800 MG tab] 800 mg PO Q8HR PRN #30 tablet 02/13/17 Unknown Rx Acetaminophen [Tylenol Extra 500 mg PO Q6H #30 tablet 10/23/17 Unknown Rx Strength] Pnv No.95/Ferrous Fum/Folic AC 1 each PO QDAY #40 tablet 10/23/17 Unknown Rx [ Vitamin Tablet] ED Physical Exam - General Limitations: No Limitations ED Course Vital Signs 12/23/17 12/23/17 12/23/17 13:07 14:27 16:59 Temperature 98.5 F Pulse Rate 82 Respiratory 16 18 18 Rate Blood Pressure 130/77 O2 Sat by Pulse 100 100 Oximetry Lab Results 12/23/17 12/23/17 12/23/17 Range/Units 14:35 14:35 14:39 WBC 4.8 (4.5-11.0) K/mm3 RBC 3.99 (3.65-5.03) M/mm3 Hgb 12.4 (10.1-14.3) gm/dl Hct 36.3 (30.3-42.9) % MCV 91 (79-97) fl MCH 31 (28-32) pg MCHC 34 (30-34) % RDW 13.0 L (13.2-15.2) % Plt Count 262 (140-440) K/mm3 Lymph % (Auto) 28.1 (13.4-35.0) % [place] % (Auto) 10.8 H (0.0-7.3) % Eos % (Auto) 0.7 (0.0-4.3) % Baso % (Auto) 0.3 (0.0-1.8) % Lymph # 1.4 (1.2-5.4) K/mm3 [place] # 0.5 (0.0-0.8) K/mm3 Eos # 0.0 (0.0-0.4) K/mm3 Baso # 0.0 (0.0-0.1) K/mm3 Seg Neutrophils % 60.1 (40.0-70.0) % Seg Neutrophils # 2.9 (1.8-7.7) K/mm3 Sodium 135 L (137-145) mmol/L Potassium 3.8 (3.6-5.0) mmol/L Chloride 101.6 (98-107) mmol/L Carbon Dioxide 22 (22-30) mmol/L Anion Gap 15 mmol/L BUN 7 (7-17) mg/dL Creatinine 0.4 L (0.7-1.2) mg/dL Estimated GFR > 60 ml/min BUN/Creatinine Ratio 18 % Glucose 109 H (65-100) mg/dL Calcium 8.7 (8.4-10.2) mg/dL HCG, Qual Positive (Negative) Urine Color (Yellow) Urine Turbidity (Clear) Urine pH (5.0-7.0) Ur Specific [place] (1.003-1.030) Urine Protein (Negative) mg/dL Urine Glucose (UA) (Negative) mg/dL Urine Ketones (Negative) mg/dL Urine Blood (Negative) Urine Nitrite (Negative) Urine Bilirubin (Negative) Urine Urobilinogen (<2.0) mg/dL Ur Leukocyte Esterase (Negative) Urine WBC (Auto) (0.0-6.0) /HPF Urine RBC (Auto) (0.0-6.0) /HPF U Epithel Cells (Auto) (0-13.0) /HPF Urine Mucus /HPF 12/23/17 Range/Units Unknown WBC (4.5-11.0) K/mm3 RBC (3.65-5.03) M/mm3 Hgb (10.1-14.3) gm/dl Hct (30.3-42.9) % MCV (79-97) fl MCH (28-32) pg MCHC (30-34) % RDW (13.2-15.2) % Plt Count (140-440) K/mm3 Lymph % (Auto) (13.4-35.0) % [place] % (Auto) (0.0-7.3) % Eos % (Auto) (0.0-4.3) % Baso % (Auto) (0.0-1.8) % Lymph # (1.2-5.4) K/mm3 [place] # (0.0-0.8) K/mm3 Eos # (0.0-0.4) K/mm3 Baso # (0.0-0.1) K/mm3 Seg Neutrophils % (40.0-70.0) % Seg Neutrophils # (1.8-7.7) K/mm3 Sodium (137-145) mmol/L Potassium (3.6-5.0) mmol/L Chloride (98-107) mmol/L Carbon Dioxide (22-30) mmol/L Anion Gap mmol/L BUN (7-17) mg/dL Creatinine (0.7-1.2) mg/dL Estimated GFR ml/min BUN/Creatinine Ratio % Glucose (65-100) mg/dL Calcium (8.4-10.2) mg/dL HCG, Qual (Negative) Urine Color Yellow (Yellow) Urine Turbidity Clear (Clear) Urine pH 8.0 H (5.0-7.0) Ur Specific [place] 1.018 (1.003-1.030) Urine Protein <15 mg/dl (Negative) mg/dL Urine Glucose (UA) Neg (Negative) mg/dL Urine Ketones Neg (Negative) mg/dL Urine Blood Neg (Negative) Urine Nitrite Neg (Negative) Urine Bilirubin Neg (Negative) Urine Urobilinogen 2.0 (<2.0) mg/dL Ur Leukocyte Esterase Neg (Negative) Urine WBC (Auto) 1.0 (0.0-6.0) /HPF Urine RBC (Auto) 2.0 (0.0-6.0) /HPF U Epithel Cells (Auto) 2.0 (0-13.0) /HPF Urine Mucus Few /HPF - Reevaluation(s) Reevaluation #1: 12/23/17 15:31 Patient is stable, she received Percocet 5/325 2 tablets, Zofran 4 mg ODT and still reports pain in her abdomen. Patient to receive IV fluid and Zofran IV. I waited in ultrasound reports. ED Medical Decision Making - Lab Data Result diagrams: 12/23/17 14:35 12/23/17 14:35 Critical care attestation.: If time is entered above; I have spent that time in minutes in the direct care of this critically ill patient, excluding procedure time. ED Disposition Clinical Impression: Threatened Abdominal pain Qualifiers: Abdominal location: left lower quadrant Qualified Code(s): R10.32 - Left lower quadrant pain Disposition: - TO HOME OR SELFCARE Is pt being admited?: No Does the pt Need Aspirin: No Condition: Stable Instructions: Abdominal Pain (ED), Acute Abdominal Pain (ED), Threatened Miscarriage (ED) Additional Instructions: Increase her fluid intake Please follow-up with your CEN[employer]UGAL SCREEN TENDER and also your specialist in [facility] who is managing your fibroids Due to your fibroids, your consider high risk , so please return to the hospital if you have vaginal bleeding, increase in abdominal pain, vaginal discharge or drainage from the vaginal area. Referrals: [facility], CENTRIFUGAL SCREEN TENDER [Other] - 12/27/17 PRIMARY CARE, [Primary Care Provider] - 12/27/17 Forms: Work/School Release Form(ED)
--- NOTE | 2017-12-23 14:26 | Emergency Department Report ---
Chief Complaint: Abdominal Pain Stated Complaint: ABDOMINAL PAIN/3 MONTHS - HPI History of Present Illness: Ms. Martins is currently 9 weeks with severe LLQ pain radiating to left leg. Similar to previous pain associated with urine fibroids. However, more severe currently. Took two Tylenol tabs without relief. Pain began 0015 this am. - Exam Vital Signs: Vital Signs 12/23/17 13:07 Temperature 98.5 F Pulse Rate 82 Respiratory 16 Rate Blood Pressure 130/77 O2 Sat by Pulse 100 Oximetry MSE screening note: Focused history and physical exam performed. Due to findings the following was ordered: ED Disposition for MSE Condition: Stable Instructions: Abdominal Pain (ED)
[2017-12-23 14:51] LABS: Basophils % (Auto) 0.3 % (0.0-1.8); Eosinophils % (Auto) 0.7 % (0.0-4.3); Hematocrit 36.3 % (30.3-42.9); Hemoglobin 12.4 gm/dl (10.1-14.3); Lymphocytes # (Auto) 1.4 K/mm3 (1.2-5.4); Lymphocytes % (Auto) 28.1 % (13.4-35.0); Mean Corpuscular HGB Conc 34 % (30-34); Mean Corpuscular Hemoglobin 31 pg (28-32); Mean Corpuscular Volume 91 fl (79-97); Monocytes # (Auto) 0.5 K/mm3 (0.0-0.8); Monocytes % (Auto) 10.8 % (0.0-7.3); Platelet Count 262 K/mm3 (140-440); Red Blood Count 3.99 M/mm3 (3.65-5.03)
[2017-12-23 15:01] LABS: BUN/Creatinine Ratio 18; Blood Urea Nitrogen 7 mg/dL (7-17); Calcium 8.7 mg/dL (8.4-10.2); Hemolysis Index 6
[2017-12-23] MEDS ORDERED: NACL 0.9% 1000 ML 1,000 ML IV ONE (15:30)
[2017-12-23] MEDS ORDERED: ZOFRAN IV ONE (15:30)
--- NOTE | 2017-12-23 16:11 | Ultrasound Report ---
FINAL REPORT PROCEDURE: US OB < = 14 WEEKS FETUS TECHNIQUE: Real-time transabdominal sonography of the uterus, placenta, amniotic fluid, adnexa, and fetus was performed with image documentation. Measurements were obtained to determine age/size. M-mode Doppler was used to document heartbeat. CPT 62420 HISTORY: Left lower quadrant pain. COMPARISON: No prior studies are available for comparison. FINDINGS: LMP: 09/20/2017. Clinical age: 13 weeks 3 days. EDC: 06/27/2018. CRL: 77.3 mm, which corresponds to a gestational age of: 13 weeks, 5 days. Yolk Sac: Not present. Embryonic Cardiac Activity: 149 beats per minute. Gestational Sac: Normal. Amniotic fluid: Normal. Cervix: Normal. Uterus: 15.7 x 7.9 x 11.8 centimeters. Several uterine fibroids, the largest measures 4.8 x 5.0 x 4.1 cm. Right Ovary: Not visualized Left Ovary: 4.3 x 2.4 x 3.2 cm. Normal flow. 2.4 cm complex hypoechoic lesion. Estimated delivery date: 06/25/2018. IMPRESSION: Single live intrauterine gestation at approximately 13 weeks 5 days. EDC by US 06/25/2018. Small complex hypoechoic area in the left ovary, likely complex/corpus luteum cyst. Uterine fibroids. Findings can be re-evaluated on followup examination.
== END 2017-12-23 17:54 | disposition home or self-care (01) ==
LOC: ED 12:55
DX: O20.0 Threatened abortion (principal); Z3A.13 13 weeks gestation of pregnancy
CPT/HCPCS: 36415; 76801; 80048; 81001; 84702; 84703; 85025; 87086; 96361; 96374; 99284; J2405; J7030; Q0162

== ENCOUNTER 2018-02-11 07:52 | Outpatient (CLI) | payer MEDICAID ==
[2018-02-11 08:15] VITALS: BP 127/73
[2018-02-11 08:48] LABS: Bacteria,Urine 1+ /HPF (Negative); Bilirubin,Urine NEG (Negative); Blood,Urine NEG (Negative); Color,Urine Yellow (Yellow); Mucus,Urine 2+ /HPF; Protein,Urine <15 mg/dL mg/dL (Negative)
--- NOTE | 2018-02-11 10:57 | Ultrasound Report ---
COMPLETE OB ULTRASOUND: evaluation. Gestation: Gayle Position: Cephalic Amniotic Fluid: WNL Placenta: Anterior Placental Grade: 0 Heart Rate: 152 BPM Cervical length: 3.3 cm (Normal > 3 cm) ANATOMY VISUALIZED: Stomach Bladder Diaphragm 4 Chamber Heart Heart Abd. Cord Insert SPINE VISUALIZED: Limited spine due to position The following are not demonstrated due to maternal body habitus or lie: Cerebral anatomy, kidneys, three-vessel cord, spine BPD: 4.7 cm = 20 w 0 d HC: 18.7 cm = 21 w 0 d AC: 15.7 cm = 20 w 6 d FL: 3.1 cm = 19 w 4 d HC/AC Ratio: 1.19 Cephalic Index: 82.3 Estimated Weight: 372 grams LMP: 09/20/17 Clinical age = 20 w 4 d EDC: 06/27/18 US Gest. Age = 20 w 2 d EDC: 06/29/18 Multiple fibroids noted during exam.
== END 2018-02-11 11:15 | disposition home or self-care (01) ==
LOC: TRG 07:52
PROVIDERS: ATTEND Obstetrics & Gynecology
DX: O34.12 Maternal care for benign tumor of corpus uteri, second trimester (principal); Z3A.20 20 weeks gestation of pregnancy
CPT/HCPCS: 59025; 76805; 81001

== ENCOUNTER 2018-03-13 20:09 | Outpatient (CLI) | payer MEDICAID ==
[2018-03-13 20:38] VITALS: BP 134/76
[2018-03-13 21:37] LABS: Bilirubin,Urine NEG (Negative); Blood,Urine NEG (Negative); Color,Urine Yellow (Yellow); Mucus,Urine 3+ /HPF
== END 2018-03-13 22:00 | disposition home or self-care (01) ==
LOC: TRG 20:09 → LD 20:11 → TRG 22:00
PROVIDERS: ATTEND Obstetrics & Gynecology
DX: O26.892 Other specified pregnancy related conditions, second trimester (principal); M25.551 Pain in right hip; Z3A.24 24 weeks gestation of pregnancy
CPT/HCPCS: 59025; 81001

== ENCOUNTER 2018-05-18 12:42 | Outpatient (CLI) | payer MEDICAID ==
[2018-05-18 13:44] LABS: Bilirubin,Urine NEG (Negative); Blood,Urine NEG (Negative); Color,Urine Yellow (Yellow); Mucus,Urine 2+ /HPF; Protein,Urine <15 mg/dL mg/dL (Negative)
[2018-05-18] MEDS ORDERED: LACTATED RINGERS 500 ML IV ONE (14:00)
[2018-05-18] MEDS ORDERED: LACTATED RINGERS 1,000 ML IV SCH (14:00)
[2018-05-18 14:01] VITALS: BP 121/73
[2018-05-18 14:17] LABS: Hematocrit 32.1 % (30.3-42.9); Hemoglobin 10.8 gm/dl (10.1-14.3); Mean Corpuscular HGB Conc 34 % (30-34); Mean Corpuscular Hemoglobin 31 pg (28-32); Mean Corpuscular Volume 91 fl (79-97); Platelet Count 275 K/mm3 (140-440); Red Blood Count 3.52 M/mm3 (3.65-5.03); Red Cell Distribution Width 12.7 % (13.2-15.2)
[2018-05-18 14:45] LABS: Alanine Aminotransferase 8 units/L (7-56); BUN/Creatinine Ratio 15; Blood Urea Nitrogen 6 mg/dL (7-17); Calcium 9.1 mg/dL (8.4-10.2); Hemolysis Index 55
[2018-05-18] MEDS ORDERED: IMODIUM PO ONE (16:00)
== END 2018-05-18 15:27 | disposition home or self-care (01) ==
LOC: TRG 12:42
PROVIDERS: ATTEND Obstetrics & Gynecology
DX: O47.03 False labor before 37 completed weeks of gestation, third trimester (principal); Z3A.34 34 weeks gestation of pregnancy; Z90.49 Acquired absence of other specified parts of digestive tract; Z82.49 Family history of ischemic heart disease and other diseases of the circulatory system
CPT/HCPCS: 36415; 59025; 80053; 81001; 85027; 96360; J7120

== ENCOUNTER 2018-05-20 16:40 | Outpatient (CLI) | payer MEDICAID ==
[2018-05-20 19:05] LABS: Bacteria,Urine 1+ /HPF (Negative); Bilirubin,Urine NEG (Negative); Blood,Urine NEG (Negative); Color,Urine Yellow (Yellow); Mucus,Urine 3+ /HPF
[2018-05-20 19:24] VITALS: BP 131/74
[2018-05-20] MEDS ORDERED: PERCOCET 5/325 PO ONE (19:26)
== END 2018-05-20 20:05 | disposition home or self-care (01) ==
LOC: TRG 16:40
PROVIDERS: ATTEND Obstetrics & Gynecology
DX: O47.03 False labor before 37 completed weeks of gestation, third trimester (principal); Z3A.34 34 weeks gestation of pregnancy
CPT/HCPCS: 59025; 81001

== ENCOUNTER 2018-05-29 11:05 | Inpatient (IN) | payer MEDICAID ==
[2018-05-29] MEDS ORDERED: LACTATED RINGERS 500 ML IV ONE (11:36)
[2018-05-29] MEDS ORDERED: TYLENOL PO ONE (12:00)
[2018-05-29 12:01] LABS: Bacteria,Urine 1+ /HPF (Negative); Bilirubin,Urine NEG (Negative); Blood,Urine NEG (Negative); Color,Urine Yellow (Yellow); Mucus,Urine 3+ /HPF
[2018-05-29 12:17] LABS: Hematocrit 32.9 % (30.3-42.9); Hemoglobin 11.4 gm/dl (10.1-14.3); Mean Corpuscular HGB Conc 35 % (30-34); Mean Corpuscular Hemoglobin 31 pg (28-32); Mean Corpuscular Volume 91 fl (79-97); Platelet Count 299 K/mm3 (140-440); Red Blood Count 3.62 M/mm3 (3.65-5.03); Red Cell Distribution Width 12.8 % (13.2-15.2)
[2018-05-29 12:41] LABS: Alanine Aminotransferase 9 units/L (7-56); BUN/Creatinine Ratio 14; Blood Urea Nitrogen 7 mg/dL (7-17); Calcium 8.7 mg/dL (8.4-10.2); Hemolysis Index 5
--- NOTE | 2018-05-29 13:03 | Ultrasound Report ---
FINAL REPORT EXAM: US OB BPP WO NON-STRESS HISTORY: wellbeing TECHNIQUE: Obstetrical sonographic imaging was performed Comparison: 12/23/2017 at which time estimated due date was 06/25/2018 FINDINGS: Sonographic imaging demonstrates single live intrauterine gestation in cephalic presentation. heart rate measures 156 beats per minute. Anterior placenta. Biophysical profile score 4/8 with 0 awarded for movements, posture and tone each, 2 ordered for qualitative amniotic fluid volume total of 16.7 centimeters and 2 awarded for breathing movements. IMPRESSION: Critical result, biophysical profile score 4/8. 0s awarded for movements, posture and tone Calculated BRAULIO 16.7 centimeters. heart rate measures 156 beats per minute. Critical level 1 result. Findings called on 05/29/2018 at 1256 hours.
--- NOTE | 2018-05-29 13:08 | Ultrasound Report ---
FINAL REPORT EXAM: US OB LIMITED HISTORY: braulio TECHNIQUE: Obstetrical sonographic imaging was performed Comparison: 12/23/2017 FINDINGS: Images demonstrate single live intrauterine gestation in cephalic presentation. Anterior placenta. Calculated BRAULIO 16.7 centimeters. Multiple fibroids are noted on the previous exam. heart rate measures 152-156 beats per minute. IMPRESSION: Single live intrauterine gestation in cephalic presentation. heart rate measures 152-156 beats per minute. Calculated BRAULIO 16.7 centimeters. Multiple uterine fibroids were noted previously. Findings called and discussed with Lupe Marr RN on 05/29/2018.
[2018-05-29] MEDS ORDERED: TYLENOL PO PRN (13:20)
[2018-05-29 13:21] LABS: Amphetamine Screen,Urine PRESUMPTIVE NEGATIVE; Benzodiazepines Screen,Urine PRESUMPTIVE NEGATIVE; Cannabinoid Screen,Urine PRESUMPTIVE NEGATIVE; Cocaine Screen,Urine PRESUMPTIVE NEGATIVE; Methadone Screen,Urine PRESUMPTIVE NEGATIVE; Opiate Screen,Urine PRESUMPTIVE NEGATIVE
--- NOTE | 2018-05-29 13:27 | History and Physical Report ---
History of Present Illness Date of examination: 05/29/18 Date of admission: 05/29/2018 Chief complaint: Decreased movement today; contractions. History of present illness: 32 year old female presents to L&D complaining at 35 weeks, 6 days gestation complaining of decreased movement today and contractions beginning this morning. Patient states she has not felt any movement today. Ate breakfast and drank juice but still didn't feel the baby move so she came in. Patient denies leaking of fluid or vaginal bleeding. Patient states she has been receiving regular care at [facility]; we do not have records available in labor and delivery. Pt. states her EDC is 06/27/18 and was based on her LMP and confirmed by 16 week US. Patient states she has a history of severe preeclampsia with her first 10 years ago and was induced at 36 weeks gestation resulting in a . She has been seeing [facility] during this for history of severe preeclampsia and is taking Aspirin 81 mg po daily. Patient denies any other problems with her . Patient states she has had 3 previous SABs (first trimester). No labs available. Will draw labs here. Patient had BPP and BRAULIO done in triage today. NST reactive but BPP is 4/8 (off for movement and tone). US was then ordered for EFW and EGA since we do not have records; EFW by today's US was 5 lbs. 14 oz. EGA by today's US was 35 weeks, 3 days gestation (EDC of 06/30/18). BRAULIO 16.1 cm. Umbilical cord doppler US done also. Preeclamptic labs negative. Urine trace protein; UDS negative. Past History Past Medical History: other (obesity (weight 230 lbs); severe preeclampsia with first 10 years ago) Past Surgical History: cholecystectomy [employer] History: denies: chlamydia, gonorrhea, hepatitis B, hepatitis C, herpes, HIV , syphilis Family/Genetic History: none Social history: single, full code. denies: smoking, alcohol abuse, prescription drug abuse, IV drug use - Obstetrical History Expected Date of Delivery: 06/27/18 Actual Gestation: 35 Week(s) 6 Day(s) : 5 Para: 1 Hx # Term Pregnancies: 0 Number of Pregnancies: 2 Spontaneous Abortions: 3 Induced : 0 Number of Living Children: 1 Medications and Allergies Allergies Allergy/AdvReac Type Severity Reaction Status Date / Time No Known Allergies Allergy Verified 02/13/17 08:28 Home Medications Medication Instructions Recorded Confirmed Last Taken Type Pnv No.95/Ferrous Fum/Folic AC 1 each PO QDAY #40 tablet 10/23/17 05/23/18 Unknown Rx [ Vitamin Tablet] Aspirin [Lo-Dose Aspirin EC] 81 mg PO DAILY 05/20/18 05/23/18 Unknown History Active Meds: Active Medications Acetaminophen (Tylenol) 650 mg PO Q4H PRN PRN Reason: Pain MILD(1-3)/Fever >100.5/MORAN Lactated Ringer's (Lactated Ringers) 1,000 mls @ 999 mls/hr IV BOLUS ONE Stop: 05/29/18 14:25 Multivitamins/Iron/Calcium ( Vitamin) 1 each PO QDAY LETTY Review of Systems All systems: negative (decreased movement and contractions; headache which resolved after receiving po Tylenol in triage) - Vital Signs Vital signs: Vital Signs Pulse BP 108 H 130/89 05/29/18 11:29 05/29/18 11:29 Temp Pulse Resp BP Pulse Ox 105 H 16 113/75 05/29/18 13:02 05/29/18 11:33 05/29/18 13:02 - Physical Exam Cardiovascular: Regular rate, Normal S1, Normal S2 Lungs: Positive: Clear to auscultation Abdomen: Positive: normal appearance, soft. Negative: distention, tenderness, guarding, rigidity (obese; fundal height 36.5 cm) Genitourinary (Female): Positive: normal external genitalia. Negative: perineal /vulvar lesions (no lesions seen on careful exam with bright light upon admission) Vagina: Positive: normal moisture Cervix: Positive: other (3/60/-2 upon admission) Uterus: Positive: enlarged. Negative: tender (gravid; size=dates) Anus/Rectum: Positive: normal perianal skin Extremities: Positive: normal. Negative: edema - Obstetrical FHR comments: FHR baseline 135 with moderate variability. Uterine Contraction Monitor Mode: External Cervical Dilatation: 3 Cervical Effacement Percentage: 60 station: -2 Uterine Contraction Frequency (min): irregular Uterine Contraction Pattern: Irregular Uterine Contraction Intensity: Mild Results Result Diagrams: 05/29/18 12:14 05/29/18 12:14 Abnormal lab results 05/29/18 05/29/18 Range/Units 12:14 12:14 RBC 3.62 L (3.65-5.03) M/mm3 MCHC 35 H (30-34) % RDW 12.8 L (13.2-15.2) % Sodium 136 L (137-145) mmol/L Potassium 3.5 L (3.6-5.0) mmol/L Carbon Dioxide 18 L (22-30) mmol/L Creatinine 0.5 L (0.7-1.2) mg/dL Glucose 141 H (65-100) mg/dL Total Protein 5.9 L (6.3-8.2) g/dL Albumin 3.0 L (3.9-5) g/dL All other labs normal. Assessment and Plan A: at 35 weeks, 6 days gestation. BPP 4/8. Unknown GBS status. No records available. P: Consulted with Dr. Powell regarding patient; informed Dr. Powell of BPP 4 /8, patient's status and cervical exam, and no records available. [facility] consult put in for patient. Dr. Powell spoke with Dr. Amaya from [facility]; Dr. Powell called back and states Dr. Amaya recommends immediate induction of labor. Dr. Amaya recommends dose of IM Betamethasone. Orders put in for Betamethasone and induction of labor. Discussed with patient Dr. Powell's and Dr. Amaya's recommendation that labor be induced immediately due to BPP of 4/ 8. Discussed with patient risks and benefits of induction of labor; patient consented to induction of labor. Betamethasone given IM per [facility] recommendation.
[2018-05-29] MEDS ORDERED: LACTATED RINGERS 1,000 ML IV ONE (14:28)
[2018-05-29] MEDS ORDERED: CERVIDIL VG ONE (14:47)
[2018-05-29] MEDS ORDERED: BRETHINE SUB-Q PRN (14:47)
[2018-05-29] MEDS ORDERED: ePHEDrine SULFATE IV PRN (14:47)
--- NOTE | 2018-05-29 14:50 | Ultrasound Report ---
FINAL REPORT EXAM: US OB VELOCIMETRY UMBILCAL ART HISTORY: BPP 4/8 COMPARISON: None. TECHNIQUE: Grayscale and Doppler ultrasound of the umbilical artery was performed. FINDINGS: There are normal waveforms of the umbilical artery, with resistive indices that range from 0.52-0.6. Systolic to diastolic ratio average is 2.31. heart rate is 142 beats per minute. IMPRESSION: Normal waveform of the umbilical artery.
--- NOTE | 2018-05-29 14:57 | Ultrasound Report ---
FINAL REPORT EXAM: US OB FOLLOW UP HISTORY: Estimate gestational age and weight COMPARISON: Obstetric ultrasound performed on 12/23/2017 TECHNIQUE: Limited ultrasound was performed for evaluation of gestational age in weight FINDINGS: There is a single live intrauterine in cephalic presentation. heart rate is 142 beats per minute. Amniotic fluid index is 16.1 centimeters. There is an anterior grade 0 placenta. Biparietal diameter corresponds to a gestational age of 35 weeks, 1 day. Head circumference corresponds to a gestational age of 36 weeks, 0 days. Abdominal circumference corresponds to a gestational age of 35 weeks, 5 days. Femoral length corresponds to a gestational age of 34 weeks, 6 days. Composite gestational age by ultrasound is 35 weeks, 3 days, with estimated date of delivery of 06/30/2018 Estimated weight is 2674 grams. IMPRESSION: Single live intrauterine with composite gestational age by ultrasound of 35 weeks, 3 days, with estimated date of delivery of 06/30/2018. Estimated weight is 2674 grams.
[2018-05-29] MEDS ORDERED: PITOCin/NS 20 UNIT/1000ML DRIP 20 UNITS/1,000 ML BAG IV SCH (15:00)
[2018-05-29] MEDS ORDERED: POLYCILLIN/NS 2 GM/100 ML 2 GM/100 ML BAG IV ONE ×2 (15:12→16:00)
[2018-05-29] MEDS ORDERED: XYLOCAINE 2% INFILTRATI ONE (16:00)
[2018-05-29] MEDS ORDERED: LACTATED RINGERS 1,000 ML IV SCH (16:00)
[2018-05-29] MEDS ORDERED: CELESTONE SOLUSPAN IM ONE (16:00)
[2018-05-29] MEDS ORDERED: SUBLIMAZE IV ONE (17:59)
[2018-05-29] MEDS: PITOCin/NS 30 UNIT/500ML 30 UNITS/500 ML BAG IV SCH (20:02)
[2018-05-29] MEDS: AMPICILLIN/NS 1 GM/50 ML 1 GM/50 ML BAG IV SCH (20:05)
--- NOTE | 2018-05-29 21:22 | Event Note ---
Date: 05/29/18 SVE 4-5/80/-3/posterior. Pitocin at 2 milliunits per minute. Category 1 heart rate tracing.
[2018-05-30] MEDS: AMPICILLIN/NS 1 GM/50 ML 1 GM/50 ML BAG IV SCH ×3 (00:10→10:20)
--- NOTE | 2018-05-30 02:23 | Event Note ---
Date: 05/29/18 Cervidil removed at 17:15 due to frequent contractions.
[2018-05-30] MEDS: PITOCin/NS 30 UNIT/500ML 30 UNITS/500 ML BAG IV SCH (07:09)
--- NOTE | 2018-05-30 11:14 | Progress Note ---
Assessment and Plan - Patient Problems (1) 36 weeks gestation of Onset Date: 05/30/18 Current Visit: Yes Status: Acute Plan to address problem: A: IUP @ 36 0/7 weeks Non-reassuring monitoring (BPP4/8) History of Preeclampsia - stable P: Continue with pitocin induction of labor Expectant vaginal delivery Subjective - Subjective Date of service: 05/30/18 Principal diagnosis: IUP @ 36 0/7 weeks Interval history: Pt is a 32yo BF EDC 06/27/18 EGA 36 0/7 weeks today admitted for non- reassuring monitoring with BPP 4/8 and currently being induced with pitocin. She is now 4-5cm dilated and mirtha q 3-5 mins on pitocin 10mu/ min. She does not want an epidural. Patient reports: movement normal, contractions, no new complaints, no loss of fluid, no vaginal bleeding Objective - Vital Signs Vital Signs: Vital Signs - 12hr 05/29/18 05/29/18 05/29/18 23:18 23:23 23:24 Temperature Pulse Rate 81 73 77 Blood Pressure 116/61 O2 Sat by Pulse 99 98 Oximetry 05/29/18 05/29/18 05/29/18 23:28 23:33 23:38 Temperature Pulse Rate 79 82 80 Blood Pressure O2 Sat by Pulse 99 99 97 Oximetry 05/29/18 05/29/18 05/29/18 23:40 23:43 23:48 Temperature Pulse Rate 85 77 80 Blood Pressure O2 Sat by Pulse 91 88 96 Oximetry 05/29/18 05/29/18 05/29/18 23:51 23:53 23:56 Temperature Pulse Rate 81 84 82 Blood Pressure 112/77 O2 Sat by Pulse 85 97 Oximetry 05/29/18 05/30/18 05/30/18 23:58 00:03 00:08 Temperature Pulse Rate 86 79 73 Blood Pressure O2 Sat by Pulse 95 99 99 Oximetry 05/30/18 05/30/18 05/30/18 00:13 00:18 00:23 Temperature Pulse Rate 72 85 83 Blood Pressure O2 Sat by Pulse 98 99 99 Oximetry 05/30/18 05/30/18 05/30/18 00:25 00:28 00:33 Temperature Pulse Rate 80 84 79 Blood Pressure 115/55 O2 Sat by Pulse 99 98 Oximetry 05/30/18 05/30/18 05/30/18 00:38 00:43 00:48 Temperature Pulse Rate 80 75 78 Blood Pressure O2 Sat by Pulse 99 99 99 Oximetry 05/30/18 05/30/18 05/30/18 00:53 00:55 00:58 Temperature Pulse Rate 84 78 83 Blood Pressure 120/64 O2 Sat by Pulse 99 99 Oximetry 05/30/18 05/30/18 05/30/18 01:03 01:04 01:08 Temperature Pulse Rate 78 57 L 78 Blood Pressure O2 Sat by Pulse 99 81 L 99 Oximetry 05/30/18 05/30/18 05/30/18 01:13 01:18 01:23 Temperature Pulse Rate 84 86 85 Blood Pressure O2 Sat by Pulse 98 96 97 Oximetry 05/30/18 05/30/18 05/30/18 01:24 01:28 01:33 Temperature Pulse Rate 86 80 75 Blood Pressure 128/64 O2 Sat by Pulse 100 99 Oximetry 05/30/18 05/30/18 05/30/18 01:38 01:39 01:43 Temperature Pulse Rate 86 78 Blood Pressure O2 Sat by Pulse 99 77 L 100 Oximetry 05/30/18 05/30/18 05/30/18 01:48 01:53 01:54 Temperature Pulse Rate 76 78 82 Blood Pressure 102/53 O2 Sat by Pulse 98 99 Oximetry 05/30/18 05/30/18 05/30/18 01:58 02:01 02:03 Temperature Pulse Rate 81 82 75 Blood Pressure O2 Sat by Pulse 99 94 95 Oximetry 05/30/18 05/30/18 05/30/18 02:08 02:11 02:13 Temperature Pulse Rate 80 80 82 Blood Pressure O2 Sat by Pulse 93 94 93 Oximetry 05/30/18 05/30/18 05/30/18 02:18 02:20 02:23 Temperature Pulse Rate 84 76 Blood Pressure O2 Sat by Pulse 93 93 93 Oximetry 05/30/18 05/30/18 05/30/18 02:25 02:28 02:33 Temperature Pulse Rate 75 80 81 Blood Pressure 102/55 O2 Sat by Pulse 93 93 Oximetry 05/30/18 05/30/18 05/30/18 02:35 02:38 02:43 Temperature Pulse Rate 78 79 97 H Blood Pressure O2 Sat by Pulse 0 L 93 97 Oximetry 05/30/18 05/30/18 05/30/18 02:48 02:53 02:54 Temperature Pulse Rate 75 80 82 Blood Pressure 144/67 O2 Sat by Pulse 97 96 Oximetry 05/30/18 05/30/18 05/30/18 02:58 03:00 03:03 Temperature Pulse Rate 77 77 75 Blood Pressure O2 Sat by Pulse 98 94 97 Oximetry 05/30/18 05/30/18 05/30/18 03:06 03:08 03:13 Temperature Pulse Rate 98 H 95 H 80 Blood Pressure O2 Sat by Pulse 94 96 100 Oximetry 05/30/18 05/30/18 05/30/18 03:18 03:23 03:24 Temperature Pulse Rate 69 86 82 Blood Pressure 112/56 O2 Sat by Pulse 100 99 Oximetry 05/30/18 05/30/18 05/30/18 03:28 03:33 03:38 Temperature Pulse Rate 79 78 87 Blood Pressure O2 Sat by Pulse 100 92 93 Oximetry 05/30/18 05/30/18 05/30/18 03:41 03:43 03:48 Temperature Pulse Rate 90 79 76 Blood Pressure O2 Sat by Pulse 94 94 100 Oximetry 05/30/18 05/30/18 05/30/18 03:53 03:54 03:58 Temperature Pulse Rate 78 78 78 Blood Pressure 115/66 O2 Sat by Pulse 98 98 Oximetry 05/30/18 05/30/18 05/30/18 04:01 04:03 04:08 Temperature Pulse Rate 72 75 75 Blood Pressure O2 Sat by Pulse 80 L 100 100 Oximetry 05/30/18 05/30/18 05/30/18 04:14 04:16 04:23 Temperature Pulse Rate 72 85 90 Blood Pressure O2 Sat by Pulse 100 76 L 81 L Oximetry 05/30/18 05/30/18 05/30/18 04:24 07:00 07:06 Temperature 98.8 F Pulse Rate 78 58 L Blood Pressure 122/70 O2 Sat by Pulse 78 L Oximetry 05/30/18 05/30/18 05/30/18 07:11 07:16 07:21 Temperature Pulse Rate 76 72 73 Blood Pressure O2 Sat by Pulse 99 100 99 Oximetry 05/30/18 05/30/18 05/30/18 07:25 07:26 07:31 Temperature Pulse Rate 69 72 60 Blood Pressure 127/61 116/66 O2 Sat by Pulse 98 100 Oximetry 05/30/18 05/30/18 05/30/18 07:36 07:41 07:46 Temperature Pulse Rate 78 75 82 Blood Pressure O2 Sat by Pulse 100 100 98 Oximetry 05/30/18 05/30/18 05/30/18 07:51 07:54 07:56 Temperature Pulse Rate 75 67 68 Blood Pressure 121/65 O2 Sat by Pulse 99 100 Oximetry 05/30/18 05/30/18 05/30/18 08:01 08:06 08:11 Temperature Pulse Rate 81 72 65 Blood Pressure O2 Sat by Pulse 99 100 100 Oximetry 05/30/18 05/30/18 05/30/18 08:16 08:21 08:25 Temperature Pulse Rate 78 65 69 Blood Pressure O2 Sat by Pulse 100 98 85 Oximetry 05/30/18 05/30/18 05/30/18 08:26 08:31 08:36 Temperature Pulse Rate 61 69 74 Blood Pressure O2 Sat by Pulse 99 99 98 Oximetry 05/30/18 05/30/18 05/30/18 08:41 08:46 08:51 Temperature Pulse Rate 68 75 73 Blood Pressure O2 Sat by Pulse 98 98 98 Oximetry 05/30/18 05/30/18 05/30/18 08:55 08:56 09:01 Temperature Pulse Rate 71 75 Blood Pressure 127/74 O2 Sat by Pulse 99 78 L Oximetry 05/30/18 05/30/18 05/30/18 09:07 09:25 09:51 Temperature Pulse Rate 72 92 H Blood Pressure 121/76 O2 Sat by Pulse 91 76 L Oximetry 05/30/18 05/30/18 05/30/18 09:54 09:57 10:02 Temperature Pulse Rate 72 77 96 H Blood Pressure 138/82 O2 Sat by Pulse 100 100 Oximetry 05/30/18 05/30/18 05/30/18 10:07 10:12 10:17 Temperature Pulse Rate 83 77 99 H Blood Pressure O2 Sat by Pulse 100 100 100 Oximetry 05/30/18 05/30/18 05/30/18 10:22 10:24 10:27 Temperature Pulse Rate 83 79 80 Blood Pressure 128/73 O2 Sat by Pulse 100 100 Oximetry 05/30/18 05/30/18 05/30/18 10:32 10:37 10:40 Temperature Pulse Rate 81 83 66 Blood Pressure O2 Sat by Pulse 100 100 70 L Oximetry 05/30/18 05/30/18 11:12 11:16 Temperature Pulse Rate 96 H 74 Blood Pressure O2 Sat by Pulse 100 64 L Oximetry - Exam Abdomen: Present: normal appearance Uterus: Present: normal FHR: category 1 Uterine Contraction Monitor Mode: External Cervical Dilatation: 5 Cervical Effacement Percentage: 70 station: -2 Uterine Contraction Pattern: Regular Uterine Tone Measurement Phase: Contraction Uterine Contraction Intensity: Moderate - Labs Labs: Abnormal Labs 05/29/18 05/29/18 12:14 12:14 RBC 3.62 L MCHC 35 H RDW 12.8 L Sodium 136 L Potassium 3.5 L Carbon Dioxide 18 L Creatinine 0.5 L Glucose 141 H Total Protein 5.9 L Albumin 3.0 L Laboratory Results - last 24 hr 05/29/18 05/29/18 05/29/18 11:47 11:47 12:14 WBC 5.6 RBC 3.62 L Hgb 11.4 Hct 32.9 MCV 91 MCH 31 MCHC 35 H RDW 12.8 L Plt Count 299 Sodium Potassium Chloride Carbon Dioxide Anion Gap BUN Creatinine Estimated GFR BUN/Creatinine Ratio Glucose Calcium Total Bilirubin AST ALT Alkaline Phosphatase Total Protein Albumin Albumin/Globulin Ratio Urine Color Yellow Urine Turbidity Clear Urine pH 6.0 Ur Specific [place] 1.024 Urine Protein 30 mg/dl Urine Glucose (UA) 50 Urine Ketones Tr Urine Blood Neg Urine Nitrite Neg Urine Bilirubin Neg Urine Urobilinogen 4.0 Ur Leukocyte Esterase Neg Urine WBC (Auto) 1.0 Urine RBC (Auto) 4.0 U Epithel Cells (Auto) 2.0 Urine Bacteria (Auto) 1+ Urine Mucus 3+ Urine Opiates Screen Presumptive negative Urine Methadone Screen Presumptive negative Ur Barbiturates Screen Presumptive negative Ur Phencyclidine Scrn Presumptive negative Ur Amphetamines Screen Presumptive negative U Benzodiazepines Scrn Presumptive negative Urine Cocaine Screen Presumptive negative U Marijuana (THC) Screen Presumptive negative Drugs of Abuse Note Disclamer Hep Bs Antigen HIV 1&2 Antibody Rapid HIV P24 Antigen Rubella IgG Antibody Blood Type Antibody Screen 05/29/18 05/29/18 05/29/18 12:14 14:10 21:08 WBC RBC Hgb Hct MCV MCH MCHC RDW Plt Count Sodium 136 L Potassium 3.5 L Chloride 101.8 Carbon Dioxide 18 L Anion Gap 20 BUN 7 Creatinine 0.5 L Estimated GFR > 60 BUN/Creatinine Ratio 14 Glucose 141 H Calcium 8.7 Total Bilirubin 0.20 AST 10 ALT 9 Alkaline Phosphatase 101 Total Protein 5.9 L Albumin 3.0 L Albumin/Globulin Ratio 1.0 Urine Color Urine Turbidity Urine pH Ur Specific [place] Urine Protein Urine Glucose (UA) Urine Ketones Urine Blood Urine Nitrite Urine Bilirubin Urine Urobilinogen Ur Leukocyte Esterase Urine WBC (Auto) Urine RBC (Auto) U Epithel Cells (Auto) Urine Bacteria (Auto) Urine Mucus Urine Opiates Screen Urine Methadone Screen Ur Barbiturates Screen Ur Phencyclidine Scrn Ur Amphetamines Screen U Benzodiazepines Scrn Urine Cocaine Screen U Marijuana (THC) Screen Drugs of Abuse Note Hep Bs Antigen HIV 1&2 Antibody Rapid Non react HIV P24 Antigen Non react Rubella IgG Antibody Blood Type B POSITIVE Antibody Screen Negative 05/29/18 05/29/18 21:08 21:08 WBC RBC Hgb Hct MCV MCH MCHC RDW Plt Count Sodium Potassium Chloride Carbon Dioxide Anion Gap BUN Creatinine Estimated GFR BUN/Creatinine Ratio Glucose Calcium Total Bilirubin AST ALT Alkaline Phosphatase Total Protein Albumin Albumin/Globulin Ratio Urine Color Urine Turbidity Urine pH Ur Specific [place] Urine Protein Urine Glucose (UA) Urine Ketones Urine Blood Urine Nitrite Urine Bilirubin Urine Urobilinogen Ur Leukocyte Esterase Urine WBC (Auto) Urine RBC (Auto) U Epithel Cells (Auto) Urine Bacteria (Auto) Urine Mucus Urine Opiates Screen Urine Methadone Screen Ur Barbiturates Screen Ur Phencyclidine Scrn Ur Amphetamines Screen U Benzodiazepines Scrn Urine Cocaine Screen U Marijuana (THC) Screen Drugs of Abuse Note Hep Bs Antigen Non-reactive HIV 1&2 Antibody Rapid HIV P24 Antigen Rubella IgG Antibody Immune Blood Type Antibody Screen
--- NOTE | 2018-05-30 12:03 | Procedure Note ---
OB Delivery Note - Delivery Date of Delivery: 05/30/18 Surgeon: ZEESHAN DAVIS Estimated blood loss: 100cc - Vaginal Delivery presentation: vertex Delivery position: OA Intrapartum events: labor-<37 weeks Delivery induction: cervidil Delivery augmentation: rupture of membranes, pitocin Delivery monitor: external FHT, external uterine Route of delivery: Delivery placenta: spontaneous Delivery cord: nuchal cord (x2), 3 umbilical vessels Episiotomy: none Delivery laceration: none Anesthesia: none Delivery comments: Infant delivered OA and placed on Mom's chest for [id number] bonding and delayed cord clamping, cord cut by Dad. Peds/RT in attendance. - A at 1 minute: 8 at 5 minutes: 9 Gender: Female ([id number])
[2018-05-30] MEDS ORDERED: TUCKS PAD TP PRN (12:17)
[2018-05-30] MEDS ORDERED: ZOFRAN IV PRN (12:17)
[2018-05-30] MEDS ORDERED: DULCOLAX PR PRN (12:17)
[2018-05-30] MEDS ORDERED: LANSINOH TP PRN (12:17)
[2018-05-30] MEDS ORDERED: PHENERGAN PO PRN (12:17)
[2018-05-30] MEDS ORDERED: BENADRYL PO PRN (12:17)
[2018-05-30] MEDS ORDERED: MILK OF MAGNESIA PO PRN (12:17)
[2018-05-30] MEDS ORDERED: PHENERGAN PR PRN (12:17)
[2018-05-30] MEDS ORDERED: TYLENOL PO PRN (12:17)
[2018-05-30] MEDS ORDERED: SODIUM CHLORIDE FLUSH SYRINGE 10 ML IV NR (13:00)
[2018-05-30] MEDS ORDERED: PITOCin/NS 20 UNIT/1000ML DRIP 20 UNITS/1,000 ML BAG IV SCH (13:00)
[2018-05-30] MEDS: MOTRIN PO SCH (22:11)
[2018-05-30] MEDS: COLACE PO SCH (22:11)
[2018-05-30] MEDS: FEOSOL PO SCH (22:11)
[2018-05-31] MEDS ORDERED: NORCO 5/325 PO PRN (00:06)
[2018-05-31 00:44] LABS: Hematocrit 29.8 % (30.3-42.9); Hemoglobin 10.1 gm/dl (10.1-14.3)
[2018-05-31] MEDS ORDERED: M-M-R II VACCINE SUB-Q ONE (06:00)
[2018-05-31] MEDS ORDERED: BOOSTRIX IM ONE (06:00)
[2018-05-31] MEDS: FEOSOL PO SCH ×2 (10:19→21:51)
[2018-05-31] MEDS: PRENATAL VITAMIN PO SCH (10:19)
[2018-05-31] MEDS: COLACE PO SCH ×2 (10:20→21:51)
[2018-05-31] MEDS: MOTRIN PO SCH ×3 (10:20→23:30)
--- NOTE | 2018-05-31 14:09 | Progress Note ---
Assessment and Plan - Patient Problems (1) 36 weeks gestation of Onset Date: 05/30/18 Current Visit: Yes Status: Resolved (2) (normal spontaneous vaginal delivery) Onset Date: 05/31/18 Current Visit: Yes Status: Resolved Plan to address problem: A: S/P - PPD #1 Doing well Asymptomatic anemia - stable P: May go home tomorrow. Subjective - Subjective Date of service: 05/31/18 Principal diagnosis: s/p - PPD #1 Interval history: Pt is feeling well without complaints. Bleeding improved. Patient reports: appetite normal, voiding normally, pain well controlled, flatus , ambulating normally, no dizzy ambulation, no nauseated [place]: doing well, bottle feeding Objective - Vital Signs Latest vital signs: Vital Signs Temp Pulse Resp BP BP Pulse Ox 05/31/18 08:03 98.5 F 76 18 122/89 05/31/18 04:00 97.9 F 81 18 121/78 05/31/18 00:00 98.1 F 72 18 118/68 05/30/18 19:45 98.2 F 77 18 128/83 99 05/30/18 16:13 98.7 F 99 H 20 119/74 100 05/30/18 15:10 98.2 F 87 20 124/84 100 Intake and Output 05/30/18 05/31/18 05/31/18 22:59 06:59 14:59 Intake Total 120 600 Output Total 850 300 Balance -730 300 Intake: Oral 120 600 Output: Urine 850 300 Void 850 300 Other: Total, Intake Amount 120 240 Total, Output Amount 500 300 # Voids Void 1 1 - Exam Breasts: Present: deferred Cardiovascular: Present: Regular rate Lungs: Present: Clear to auscultation Abdomen: Present: normal appearance, soft Uterus: Present: normal, firm, fundal height below umbilicus Extremities: Present: normal - Labs Labs: Abnormal lab results 05/31/18 Range/Units 00:21 Hct 29.8 L (30.3-42.9) % Laboratory Tests 05/29/18 05/29/18 05/29/18 11:47 11:47 12:14 WBC 5.6 RBC 3.62 L Hgb 11.4 Hct 32.9 MCV 91 MCH 31 MCHC 35 H RDW 12.8 L Plt Count 299 Sodium Potassium Chloride Carbon Dioxide Anion Gap BUN Creatinine Estimated GFR BUN/Creatinine Ratio Glucose Calcium Total Bilirubin AST ALT Alkaline Phosphatase Total Protein Albumin Albumin/Globulin Ratio Urine Color Yellow Urine Turbidity Clear Urine pH 6.0 Ur Specific [place] 1.024 Urine Protein 30 mg/dl Urine Glucose (UA) 50 Urine Ketones Tr Urine Blood Neg Urine Nitrite Neg Urine Bilirubin Neg Urine Urobilinogen 4.0 Ur Leukocyte Esterase Neg Urine WBC (Auto) 1.0 Urine RBC (Auto) 4.0 U Epithel Cells (Auto) 2.0 Urine Bacteria (Auto) 1+ Urine Mucus 3+ Urine Opiates Screen Presumptive negative Urine Methadone Screen Presumptive negative Ur Barbiturates Screen Presumptive negative Ur Phencyclidine Scrn Presumptive negative Ur Amphetamines Screen Presumptive negative U Benzodiazepines Scrn Presumptive negative Urine Cocaine Screen Presumptive negative U Marijuana (THC) Screen Presumptive negative Drugs of Abuse Note Disclamer RPR Hep Bs Antigen HIV 1&2 Antibody Rapid HIV P24 Antigen Rubella IgG Antibody Blood Type Antibody Screen 05/29/18 05/29/18 05/29/18 12:14 14:10 21:08 WBC RBC Hgb Hct MCV MCH MCHC RDW Plt Count Sodium 136 L Potassium 3.5 L Chloride 101.8 Carbon Dioxide 18 L Anion Gap 20 BUN 7 Creatinine 0.5 L Estimated GFR > 60 BUN/Creatinine Ratio 14 Glucose 141 H Calcium 8.7 Total Bilirubin 0.20 AST 10 ALT 9 Alkaline Phosphatase 101 Total Protein 5.9 L Albumin 3.0 L Albumin/Globulin Ratio 1.0 Urine Color Urine Turbidity Urine pH Ur Specific [place] Urine Protein Urine Glucose (UA) Urine Ketones Urine Blood Urine Nitrite Urine Bilirubin Urine Urobilinogen Ur Leukocyte Esterase Urine WBC (Auto) Urine RBC (Auto) U Epithel Cells (Auto) Urine Bacteria (Auto) Urine Mucus Urine Opiates Screen Urine Methadone Screen Ur Barbiturates Screen Ur Phencyclidine Scrn Ur Amphetamines Screen U Benzodiazepines Scrn Urine Cocaine Screen U Marijuana (THC) Screen Drugs of Abuse Note RPR Hep Bs Antigen HIV 1&2 Antibody Rapid Non react HIV P24 Antigen Non react Rubella IgG Antibody Blood Type B POSITIVE Antibody Screen Negative 05/29/18 05/29/18 05/29/18 21:08 21:08 21:08 WBC RBC Hgb Hct MCV MCH MCHC RDW Plt Count Sodium Potassium Chloride Carbon Dioxide Anion Gap BUN Creatinine Estimated GFR BUN/Creatinine Ratio Glucose Calcium Total Bilirubin AST ALT Alkaline Phosphatase Total Protein Albumin Albumin/Globulin Ratio Urine Color Urine Turbidity Urine pH Ur Specific [place] Urine Protein Urine Glucose (UA) Urine Ketones Urine Blood Urine Nitrite Urine Bilirubin Urine Urobilinogen Ur Leukocyte Esterase Urine WBC (Auto) Urine RBC (Auto) U Epithel Cells (Auto) Urine Bacteria (Auto) Urine Mucus Urine Opiates Screen Urine Methadone Screen Ur Barbiturates Screen Ur Phencyclidine Scrn Ur Amphetamines Screen U Benzodiazepines Scrn Urine Cocaine Screen U Marijuana (THC) Screen Drugs of Abuse Note RPR Nonreactive Hep Bs Antigen Non-reactive HIV 1&2 Antibody Rapid HIV P24 Antigen Rubella IgG Antibody Immune Blood Type Antibody Screen 05/31/18 00:21 WBC RBC Hgb 10.1 Hct 29.8 L MCV MCH MCHC RDW Plt Count Sodium Potassium Chloride Carbon Dioxide Anion Gap BUN Creatinine Estimated GFR BUN/Creatinine Ratio Glucose Calcium Total Bilirubin AST ALT Alkaline Phosphatase Total Protein Albumin Albumin/Globulin Ratio Urine Color Urine Turbidity Urine pH Ur Specific [place] Urine Protein Urine Glucose (UA) Urine Ketones Urine Blood Urine Nitrite Urine Bilirubin Urine Urobilinogen Ur Leukocyte Esterase Urine WBC (Auto) Urine RBC (Auto) U Epithel Cells (Auto) Urine Bacteria (Auto) Urine Mucus Urine Opiates Screen Urine Methadone Screen Ur Barbiturates Screen Ur Phencyclidine Scrn Ur Amphetamines Screen U Benzodiazepines Scrn Urine Cocaine Screen U Marijuana (THC) Screen Drugs of Abuse Note RPR Hep Bs Antigen HIV 1&2 Antibody Rapid HIV P24 Antigen Rubella IgG Antibody Blood Type Antibody Screen
--- NOTE | 2018-05-31 17:41 | Discharge Summary ---
Providers - Providers Date of Admission: 05/29/18 14:06 Date of discharge: 06/01/18 Attending physician: ZEESHAN DAVIS 05/29/18 13:20 Consult to Physician [CONS] Stat Comment: Consulting Provider: YASH MAXWELL I Physician Instructions: Reason For Exam: BPP 02/27 Primary care physician: ZEESHAN DAVIS Hospitalization Reason for admission: IUP - , induction of labor, other (Non-reassuring surveillance) Delivery: Episiotomy: none Laceration: none Other procedures: none complications: none Discharge diagnosis: delivery [place] baby: female Hospital course: Unremarkable. Condition at discharge: Good Disposition: [id number] TO HOME OR SELFCARE - Discharge Diagnoses (1) 36 weeks gestation of Status: Resolved (2) (normal spontaneous vaginal delivery) Status: Resolved Plan - Discharge Medications Prescriptions: Ferrous Sulfate [Feosol 325 MG tab] 325 mg PO BID #60 tablet Ibuprofen [Motrin 600 MG tab] 600 mg PO Q6HR #30 tablet Vit-Fe Fumar-FA [ Vitamin] 1 each PO QDAY #30 tablet - Provider Discharge Summary Activity: routine, no sex for 6 weeks, no heavy lifting 4 weeks, no strenuous exercise Diet: routine Instructions: routine Additional instructions: [] Smoking cessation referral if applicable(refer to patient education folder for contact #) [] Refer to [facility] Booklet Call your doctor immediately for: * Fever > 100.5 * Heavy vaginal bleeding ( >1 pad per hour) * Severe persistent headache * Shortness of breath * Reddened, hot, painful area to leg or breast * Drainage or odor from incision. * Keep incision clean and dry at all times and follow doctor's instructions regarding bathing/showering - Follow up plan Follow up: ZEESHAN DAVIS MD [Primary Care Provider] - 6 Weeks Forms: [facility] Discharge Summary, Work/School Excuse Out Patient
[2018-06-01] MEDS: MOTRIN PO SCH (06:07)
[2018-06-01 08:01] VITALS: BP 125/79
[2018-06-01] MEDS: FEOSOL PO SCH (09:49)
[2018-06-01] MEDS: COLACE PO SCH (09:49)
[2018-06-01] MEDS: PRENATAL VITAMIN PO SCH (09:49)
== END 2018-06-01 13:40 | disposition home or self-care (01) | DRG 775 ==
LOC: TRG 11:05 → LD 14:06 → OB 05-30 15:31
PROVIDERS: ADMIT Obstetrics & Gynecology; ATTEND Obstetrics & Gynecology
PROC: 3E0P7VZ Introduction of Hormone into Female Reproductive, Via Natural or Artificial Opening (ICD-10-PCS; 2018-05-29)
PROC: 10E0XZZ Delivery of Products of Conception, External Approach (ICD-10-PCS; principal; 2018-05-30)
DX: O60.14X0 Preterm labor third trimester with preterm delivery third trimester, not applicable or unspecified (principal); O76 Abnormality in fetal heart rate and rhythm complicating labor and delivery; O69.81X0 Labor and delivery complicated by cord around neck, without compression, not applicable or unspecified; Z3A.35 35 weeks gestation of pregnancy; Z37.0 Single live birth; Z90.49 Acquired absence of other specified parts of digestive tract
CPT/HCPCS: 36415; 59025; 59200; 76815; 76816; 76819; 76820; 80053; 80307; 81001; 85014; 85018; 85027; 86592; 86706; 86762; 86850; 86900; 86901; 87806; 88307; 99211; G0463; J0290; J0702; J2590; J7120

== ENCOUNTER 2022-08-12 08:38 | Emergency (ER) | payer SELFPAY ==
[2022-08-12 08:47] VITALS: BP 162/116
== END 2022-08-12 14:06 | disposition left against medical advice (07) ==
LOC: ED 08:38
DX: M54.9 Dorsalgia, unspecified (principal); R11.2 Nausea with vomiting, unspecified; Z53.21 Procedure and treatment not carried out due to patient leaving prior to being seen by health care provider